=== PATIENT | female | born 1945 | race Caucasian/White ===

== ENCOUNTER 2020-07-27 15:33 | Inpatient (IN) | payer MEDICARE, MEDICAID ==
[~2020-07-27] VITALS: Ht 154.9 cm; Wt 65.3 kg
[2020-07-27 16:08] LABS: COVID AG,FIA SOURCE NASOPHARYNGEAL
[2020-07-27] MEDS ORDERED: MECL25TA39 PO (16:20)
[2020-07-27] MEDS ORDERED: DICL2100G TP (16:20)
[2020-07-27] MEDS ORDERED: INSU100V39 SQ (16:20)
[2020-07-27] MEDS ORDERED: LORA10TA7 PO (16:20)
[2020-07-27] MEDS ORDERED: [UNRECOGNIZED DRUG - CODE] OU (16:20)
[2020-07-27] MEDS ORDERED: FAMO20 PO (16:20)
[2020-07-27] MEDS ORDERED: FERR-89 PO (16:20)
[2020-07-27] MEDS ORDERED: MELA3TAB89 PO (16:20)
[2020-07-27] MEDS ORDERED: OCTR100A SQ (16:20)
[2020-07-27] MEDS ORDERED: MIRT-89 PO (16:20)
[2020-07-27] MEDS ORDERED: [UNRECOGNIZED DRUG - OTHER] IV (16:20)
[2020-07-27] MEDS ORDERED: FENT1PAT26 TP (16:20)
[2020-07-27] MEDS ORDERED: LISI-661 PO (16:20)
[2020-07-27] MEDS ORDERED: ASPI-1111 PO (16:20)
[2020-07-27] MEDS ORDERED: TRAM50TA4 PO (16:20)
[2020-07-27] MEDS ORDERED: QUET25TA PO (16:20)
[2020-07-27] MEDS ORDERED: 0.9% SODIUM CHLORIDE 10 ML SYRINGE IVP PRN (16:30)
[2020-07-27] MEDS ORDERED: ONDANSETRON HCL 4 MG/2 ML VIAL IVP PRN (16:30)
[2020-07-27] MEDS ORDERED: SODIUM CL IRRIG SOLN BAG 3,000 ML IRRIG ONE (16:42)
[2020-07-27 16:47] LABS: BASOPHILS % (AUTO) 0.4 % (0.0-2.0); EOSINOPHILS % (AUTO) 1.3 % (1.0-6.0); HEMATOCRIT 34.5 % (36-46); LYMPHOCYTES # (AUTO) 3.9 K/uL (1.0-4.8); LYMPHOCYTES % (AUTO) 35.2 % (22.0-44.0); MEAN CORPUSCULAR HEMOGLOBIN 29.1 pg (26.0-34.0); MEAN CORPUSCULAR HGB CONC 31.8 G/dL (31.0-37.0); MEAN CORPUSCULAR VOLUME 92 fL (80-100); MONOCYTES # (AUTO) 0.9 K/uL (0.1-1.0); MONOCYTES % (AUTO) 8.6 % (2.0-9.0); NEUTROPHILS % (AUTO) 54.5 % (40.0-70.0); PLATELET COUNT (AUTO) 342 K/uL (150-450); RED BLOOD CELL COUNT(AUTO) 3.76 MIL/uL (4.00-5.20); RED CELL DISTRIBUTION WIDTH 15.4 % (11.5-14.5)
[2020-07-27] MEDS ORDERED: SODIUM CHLORIDE 0.9% 500 ML IV ONE (16:54)
[2020-07-27 17:00] LABS: CALCIUM, TOTAL 10.1 mg/dL (8.8-10.5); CREATININE 1.1 mg/dL (0.60-1.30); POTASSIUM 4.1 mmol/L (3.5-5.1)
[2020-07-27 17:03] LABS: INR 1.1 (0.9-1.1); PROTHROMBIN TIME 11.1 SEC (9.4-11.6)
[2020-07-27 17:07] LABS: ALBUMIN 2.4 g/dL (3.4-5.0); BILIRUBIN,TOTAL 0.6 mg/dL (0.1-1.0); MAGNESIUM 1.6 mg/dL (1.80-2.40); TOTAL PROTEIN, SERUM 9.1 g/dL (6.4-8.2)
[2020-07-27 17:09] LABS: LACTIC ACID 1.8 mmol/L (0.4-2.0)
[2020-07-27] MEDS ORDERED: SODIUM CHLORIDE 0.9% 1,000 ML ONE ×2 (17:13→20:19)
[2020-07-27 18:41] LABS: ABG A-A DIFF O2 386.7 mmHg (10-20.0); ABG BASE EXCESS -3.9 mmol/L (-2.0-3.0); ABG CARBOXYHEMOGLOBIN 0.3 % (0.0-1.5); ABG HCO3 21.7 mmol/L (22.0-26.0); ABG METHEMOGLOBIN 0.3 % (0.0-1.5); ABG OXYGEN CONTENT 14.5 mL/dL (15.0-23.0); ABG OXYGEN SATURATION 99.5 % (95.0-98.0); ABG OXYHEMOGLOBIN 98.9 % (94.0-100.0); ABG PCO2 34 mmHg (35-45); ABG TOTAL HEMOGLOBIN 9.9 G/dL (12.0-18.0); PO2, ARTERIAL BG 293.7 mmHg (75.0-83.0); SOURCE, BLOOD GAS ARTERIAL
[2020-07-27 18:42] LABS: O2 DEVICE,BLOOD GAS VENTILATOR (ROOM AIR); PEEP,BG 5 cm H2O; SITE, BLOOD GAS ARTERIAL LINE; VT, ABG 450 ml
[2020-07-27] MEDS ORDERED: MetroNIDAZOLE 500 MG/NACL 100 ML IV ONE (18:47)
[2020-07-27] MEDS ORDERED: SUGAMMADEX SODIUM 200 MG/2 ML VIAL IVP ONE (20:19)
[2020-07-27] MEDS ORDERED: HYDROmorphone 2 MG/ML SYRINGE IVP PRN (21:45)
[2020-07-27] MEDS ORDERED: FentaNYL CITRATE PF 100 MCG/2 ML VIAL IVP PRN (21:45)
[2020-07-27] MEDS ORDERED: MEPERIDINE-PF 25 MG/ML VIAL IVP PRN (21:45)
[2020-07-27] MEDS ORDERED: MORPHINE SULFATE 2 MG/ML SYRINGE IVP PRN (22:00)
[2020-07-27] MEDS ORDERED: ACETAMINOPHEN 325 MG RECTAL SUPPOSITORY PR PRN (22:00)
[2020-07-27 22:01] LABS: BASOPHILS % (AUTO) 0.6 % (0.0-2.0); EOSINOPHILS % (AUTO) 0.6 % (1.0-6.0); HEMATOCRIT 31.3 % (36-46); HEMOGLOBIN 9.8 g/dL (12.0-16.0); LYMPHOCYTES # (AUTO) 3.4 K/uL (1.0-4.8); LYMPHOCYTES % (AUTO) 28.7 % (22.0-44.0); MEAN CORPUSCULAR HEMOGLOBIN 29.1 pg (26.0-34.0); MEAN CORPUSCULAR HGB CONC 31.4 G/dL (31.0-37.0); MEAN CORPUSCULAR VOLUME 93 fL (80-100); MONOCYTES # (AUTO) 0.4 K/uL (0.1-1.0); MONOCYTES % (AUTO) 3.2 % (2.0-9.0); NEUTROPHILS # (AUTO) 8.1 K/uL (1.8-7.7); NEUTROPHILS % (AUTO) 66.9 % (40.0-70.0); PLATELET COUNT (AUTO) 303 K/uL (150-450); RED BLOOD CELL COUNT(AUTO) 3.38 MIL/uL (4.00-5.20); RED CELL DISTRIBUTION WIDTH 15.6 % (11.5-14.5)
[2020-07-27 22:12] LABS: INR 1.2 (0.9-1.1); PROTHROMBIN TIME 12.4 SEC (9.4-11.6)
[2020-07-27 22:20] LABS: CALCIUM, TOTAL 9.3 mg/dL (8.8-10.5); CREATININE 1.12 mg/dL (0.60-1.30); POTASSIUM 4.1 mmol/L (3.5-5.1)
[2020-07-27 22:25] LABS: BILIRUBIN,TOTAL 0.9 mg/dL (0.1-1.0); MAGNESIUM 1.4 mg/dL (1.80-2.40); PHOSPHORUS 3.9 mg/dL (2.5-4.9)
[2020-07-27] MEDS ORDERED: INSULIN LISPRO 100 UNITS/ML SQ PRN (22:30)
[2020-07-27] MEDS ORDERED: DEXTROSE 50%-WATER 25 GM/50 ML SYRINGE IVP PRN ×2 (22:30→23:45)
[2020-07-27] MEDS ORDERED: MAGNESIUM SULFATE 4 GM/WATER 100 ML IV ONE (22:30)
[2020-07-27 22:39] LABS: GLUCOMETER DEV NAME(LOC) SDS.; GLUCOSE,POINT OF CARE 216 MG/DL (70-110)
[2020-07-27] MEDS: INSULIN LISPRO 100 UNITS/ML SQ PRN (23:54)
[2020-07-27 23:57] VITALS: BP 84/38
[2020-07-28] VITALS (10 sets, daily range): BP systolic 63–143; BP diastolic 40–88
[2020-07-28] MEDS ORDERED: MORPHINE SULFATE 2 MG/ML SYRINGE IVP PRN
[2020-07-28] MEDS ORDERED: INSULIN REGULAR, HUMAN 100 UNITS/ML SQ ONE
[2020-07-28] MEDS ORDERED: ALBUMIN HUMAN 25%-12.5GM/50ML 50 ML IV ONE
[2020-07-28] MEDS: SODIUM CHLORIDE 0.9% 1,000 ML IV SCH ×3 (00:02→18:08)
[2020-07-28] MEDS: PIPERACILLIN/TAZO 3.375 GM/D5W 50 ML IV SCH ×2 (00:11→07:47)
[2020-07-28] MEDS ORDERED: ACETAMINOPHEN 325 MG RECTAL SUPPOSITORY PR PRN (00:15)
[2020-07-28] MEDS: PHYTONADIONE 1 MG in SODIUM CHLORIDE 0.9% 50 ML IV SCH ×2 (00:18→22:26)
[2020-07-28 03:56] LABS: GLUCOMETER DEV NAME(LOC) 5N.1B; GLUCOSE,POINT OF CARE 209 MG/DL (70-110)
[2020-07-28] MEDS ORDERED: PNEUMOCOCCAL VACCINE POLYVALENT 0.5 ML VIAL [PPSV23] IM ONE (05:30)
[2020-07-28] MEDS ORDERED: ACETAMINOPHEN 1000 MG/ISO-OSM 100 ML IV ONE (05:45)
[2020-07-28] MEDS ORDERED: 0.9% SODIUM CHLORIDE 10 ML VIAL IVP ONE (06:33)
[2020-07-28] MEDS ORDERED: EPHEDrine SULFATE 50 MG/ML VIAL IM ONE (06:33)
[2020-07-28] MEDS ORDERED: DEXAMETHASONE SOD PHOS 4 MG/ML VIAL IVP ONE (06:33)
[2020-07-28] MEDS ORDERED: PHENYLEPHRINE HCL 10 MG/ML VIAL IVP ONE (06:33)
[2020-07-28] MEDS ORDERED: ONDANSETRON HCL 4 MG/2 ML VIAL IVP ONE (06:33)
[2020-07-28] MEDS ORDERED: LIDOCAINE/PF 2% 5 ML VIAL IM ONE (06:33)
[2020-07-28] MEDS ORDERED: CALCIUM CHLORIDE 100 MG/ML 10 ML SYRINGE IVP ONE (06:33)
[2020-07-28] MEDS ORDERED: ROCURONIUM BROMIDE 10 MG/ML 5 ML VIAL IVP ONE (06:33)
[2020-07-28] MEDS ORDERED: PROPOFOL 1% 20 ML VIAL IVP ONE (06:33)
[2020-07-28 06:40] LABS: HEMATOCRIT 32.2 % (36-46); MEAN CORPUSCULAR HEMOGLOBIN 29.6 pg (26.0-34.0); MEAN CORPUSCULAR VOLUME 96 fL (80-100); PLATELET COUNT (AUTO) 320 K/uL (150-450); RED BLOOD CELL COUNT(AUTO) 3.37 MIL/uL (4.00-5.20); RED CELL DISTRIBUTION WIDTH 15.8 % (11.5-14.5)
[2020-07-28 07:24] LABS: ALBUMIN 2.3 g/dL (3.4-5.0); BILIRUBIN,TOTAL 1.1 mg/dL (0.1-1.0); CREATININE 1.4 mg/dL (0.60-1.30); MAGNESIUM 2.6 mg/dL (1.80-2.40); PHOSPHORUS 4.8 mg/dL (2.5-4.9); POTASSIUM 4.5 mmol/L (3.5-5.1); TOTAL PROTEIN, SERUM 7.5 g/dL (6.4-8.2)
[2020-07-28 07:43] LABS: GLUCOMETER DEV NAME(LOC) 5S.2B; GLUCOSE,POINT OF CARE 196 MG/DL (70-110)
[2020-07-28 07:44] LABS: BAND NEUTROPHILS % (MANUAL) 12 % (0-5); LYMPHOCYTES % (MANUAL) 11 % (22-44); MONOCYTES % (MANUAL) 1 % (2-9); SEGMENTED NEUTROPHILS % 76 % (40-70)
[2020-07-28] MEDS ORDERED: SODIUM CHLORIDE 0.9% 1,000 ML IV ONE (09:00)
[2020-07-28] MEDS: FAMOTIDINE 10 MG/ML 2 ML VIAL IVP SCH ×2 (09:13→20:12)
[2020-07-28] MEDS: OXYGEN THERAPY IH SCH ×2 (09:15→20:06)
[2020-07-28 10:08] LABS: LACTIC ACID 7.4 mmol/L (0.4-2.0)
[2020-07-28] MEDS ORDERED: DOPamine HCL 800 MG/D5%-WATER 250 ML IV PRN (10:30)
[2020-07-28] MEDS ORDERED: PIPERACILLIN SODIUM/TAZOBACTAM 2.25 GM in DEXTROSE 5%-WATER 50 ML IV SCH (11:00)
[2020-07-28] MEDS ORDERED: DOPamine HCL 400 MG/D5%-WATER 250 ML IV PRN ×2 (11:15→12:00)
[2020-07-28] MEDS ORDERED: DOPamine HCL 400 MG/D5%-WATER 250 ML IV SCH (11:15)
[2020-07-28 11:28] LABS: APPEARANCE,URINE TURBID (CLEAR); BILIRUBIN,URINE NEGATIVE (NEGATIVE); GLUCOSE, URINE (UA) NEGATIVE (NEGATIVE); KETONES,URINE NEGATIVE (NEGATIVE); LEUKOCYTE ESTERASE ,URINE LARGE (NEGATIVE); NITRATE,URINE NEGATIVE (NEGATIVE); OCCULT BLOOD,URINE LARGE (NEGATIVE); PH,URINE 6.5 (5.0-8.0); PROTEIN,URINE POS 1+ (NEGATIVE); UROBILINOGEN,URINE 0.2 mg/dL (<=1.0)
[2020-07-28] MEDS: NOREPINEPHRINE 4 MG/D5%-WATER 250 ML IV PRN ×3 (11:45→19:41)
[2020-07-28] MEDS ORDERED: PHENYLEPHRINE 200 MG/D5%-WATER 250 ML IV PRN (12:00)
[2020-07-28 12:07] LABS: BACTERIA,URINE Few /HPF (None Seen)
[2020-07-28 12:08] LABS: SQUAMOUS EPITHELIAL CELL,UR Few /LPF (None Seen); URIC ACID CRYSTALS,URINE Few /LPF (None Seen)
[2020-07-28] MEDS ORDERED: *CLINICAL-MEROPENEM DOSING CLINICAL ONE (12:45)
[2020-07-28] MEDS ORDERED: HYDROCORTISONE SOD SUCC 100 MG/2 ML VIAL IVP ONE (13:15)
[2020-07-28] MEDS: INSULIN LISPRO 100 UNITS/ML SQ PRN ×3 (13:52→21:46)
[2020-07-28] MEDS ORDERED: CASPOFUNGIN ACETATE 70 MG in SODIUM CHLORIDE 0.9% 250 ML IV ONE (14:00)
[2020-07-28] MEDS: MEROPENEM 1 GM in SODIUM CHLORIDE 0.9% 100 ML IV SCH (14:09)
[2020-07-28] MEDS: HYDROmorphone 2 MG/ML SYRINGE IVP PRN ×2 (14:17→18:41)
[2020-07-28 15:38] LABS: INR 1.1 (0.9-1.1); PROTHROMBIN TIME 11.9 SEC (9.4-11.6)
[2020-07-28 15:43] LABS: HEMATOCRIT 29.3 % (36-46); MEAN CORPUSCULAR HEMOGLOBIN 29.4 pg (26.0-34.0); MEAN CORPUSCULAR HGB CONC 30.8 G/dL (31.0-37.0); MEAN CORPUSCULAR VOLUME 96 fL (80-100); PLATELET COUNT (AUTO) 399 K/uL (150-450); RED BLOOD CELL COUNT(AUTO) 3.07 MIL/uL (4.00-5.20); RED CELL DISTRIBUTION WIDTH 16.4 % (11.5-14.5)
[2020-07-28 15:54] LABS: ALBUMIN 2.1 g/dL (3.4-5.0); BILIRUBIN,TOTAL 1.1 mg/dL (0.1-1.0); CALCIUM, TOTAL 8.9 mg/dL (8.8-10.5); CREATININE 1.65 mg/dL (0.60-1.30); MAGNESIUM 2.2 mg/dL (1.80-2.40); PHOSPHORUS 4.8 mg/dL (2.5-4.9); TOTAL PROTEIN, SERUM 7.1 g/dL (6.4-8.2)
[2020-07-28] MEDS ORDERED: *CLINICAL-LEVOFLOXACIN IVPB DOSING CLINICAL ONE (16:00)
[2020-07-28] MEDS ORDERED: LEVOFLOXACIN 750 MG/D5% WATER 150 ML IV SCH (16:00)
[2020-07-28 16:47] LABS: BAND NEUTROPHILS % (MANUAL) 7 % (0-5); BASOPHILS % (MANUAL) 1 % (0-2); LYMPHOCYTES % (MANUAL) 4 % (22-44); MONOCYTES % (MANUAL) 6 % (2-9); SEGMENTED NEUTROPHILS % 82 % (40-70)
[2020-07-28] MEDS ORDERED: DAPTOMYCIN 500 MG in SODIUM CHLORIDE 0.9% 50 ML IV SCH ×2 (17:00→18:00)
[2020-07-28] MEDS: ALBUMIN HUMAN 25%-12.5GM/50ML 50 ML IV SCH (18:43)
[2020-07-28 18:58] LABS: GLUCOSE,POINT OF CARE 277 MG/DL (70-110)
[2020-07-28 20:57] LABS: GLUCOSE,POINT OF CARE 243 MG/DL (70-110)
[2020-07-28 21:25] LABS: GLUCOSE,POINT OF CARE 333 MG/DL (70-110)
[2020-07-29] VITALS: BP 132/71
[2020-07-29] MEDS: ALBUMIN HUMAN 25%-12.5GM/50ML 50 ML IV SCH ×2 (00:24→06:59)
[2020-07-29 01:00] VITALS: BP 135/64
[2020-07-29] MEDS: MEROPENEM 1 GM in SODIUM CHLORIDE 0.9% 100 ML IV SCH ×2 (01:05→13:49)
[2020-07-29] MEDS: HYDROmorphone 2 MG/ML SYRINGE IVP PRN ×5 (01:06→22:30)
[2020-07-29] MEDS: SODIUM CHLORIDE 0.9% 1,000 ML IV SCH ×3 (01:26→17:31)
[2020-07-29] MEDS: NOREPINEPHRINE 4 MG/D5%-WATER 250 ML IV PRN ×2 (02:16→11:17)
[2020-07-29 04:00] VITALS: BP 149/64
[2020-07-29] MEDS ORDERED: MORPHINE SULFATE/PF 0.5 MG/ML 10 ML AMP IVP ONE (05:01)
[2020-07-29] MEDS ORDERED: MORPHINE SULFATE 4 MG/ML SYRINGE IVP ONE (05:01)
[2020-07-29] MEDS ORDERED: FentaNYL CITRATE PF 100 MCG/2 ML VIAL IVP ONE (05:01)
[2020-07-29 05:12] LABS: HEMOGLOBIN 8.3 g/dL (12.0-16.0); MEAN CORPUSCULAR HEMOGLOBIN 29.7 pg (26.0-34.0); MEAN CORPUSCULAR HGB CONC 31.8 G/dL (31.0-37.0); MEAN CORPUSCULAR VOLUME 93 fL (80-100); PLATELET COUNT (AUTO) 304 K/uL (150-450); RED BLOOD CELL COUNT(AUTO) 2.79 MIL/uL (4.00-5.20)
[2020-07-29 05:31] LABS: CALCIUM, TOTAL 8.8 mg/dL (8.8-10.5); CREATININE 1.11 mg/dL (0.60-1.30); MAGNESIUM 1.3 mg/dL (1.80-2.40); PHOSPHORUS 2.2 mg/dL (2.5-4.9); POTASSIUM 3.2 mmol/L (3.5-5.1)
[2020-07-29 05:42] LABS: BAND NEUTROPHILS % (MANUAL) 7 % (0-5); LYMPHOCYTES % (MANUAL) 9 % (22-44); MONOCYTES % (MANUAL) 8 % (2-9); SEGMENTED NEUTROPHILS % 76 % (40-70)
[2020-07-29] MEDS: INSULIN LISPRO 100 UNITS/ML SQ PRN ×3 (07:02→17:30)
[2020-07-29 07:06] LABS: GLUCOSE,POINT OF CARE 242 MG/DL (70-110)
[2020-07-29 08:00] VITALS: BP 126/59
[2020-07-29] MEDS: OXYGEN THERAPY IH SCH ×2 (08:42→22:36)
[2020-07-29] MEDS: FAMOTIDINE 10 MG/ML 2 ML VIAL IVP SCH ×2 (08:43→22:35)
[2020-07-29] MEDS ORDERED: MAGNESIUM SULFATE 4 GM/WATER 100 ML IV ONE (10:45)
[2020-07-29] MEDS ORDERED: POTASSIUM PHOS,M-BASIC-D-BASIC 30 MEQ in DEXTROSE 5%-WATER 150 ML IV ONE (10:45)
[2020-07-29 12:00] VITALS: BP 121/59
[2020-07-29] MEDS ORDERED: MAGNESIUM SULFATE 4 GM/WATER 100 ML IV PRN (13:30)
[2020-07-29] MEDS ORDERED: POTASSIUM CHLORIDE 20 MEQ ER TABLET PO PRN (13:30)
[2020-07-29] MEDS ORDERED: SODIUM PHOS,M-BASIC-D-BASIC 30 MMOL in DEXTROSE 5%-WATER 250 ML IV ONE (14:15)
[2020-07-29 14:36] LABS: GLUCOSE,POINT OF CARE 203 MG/DL (70-110)
[2020-07-29] MEDS: CASPOFUNGIN ACETATE 50 MG in SODIUM CHLORIDE 0.9% 250 ML IV SCH (15:17)
[2020-07-29] MEDS: POTASSIUM CHL 10 MEQ/WATER 50 ML IV SCH ×2 (15:19→17:10)
[2020-07-29 16:00] VITALS: BP 119/60
[2020-07-29 17:06] LABS: BASOPHILS % (AUTO) 0.1 % (0.0-2.0); EOSINOPHILS % (AUTO) 0.1 % (1.0-6.0); HEMATOCRIT 24.9 % (36-46); LYMPHOCYTES # (AUTO) 2.5 K/uL (1.0-4.8); LYMPHOCYTES % (AUTO) 12.2 % (22.0-44.0); MEAN CORPUSCULAR HEMOGLOBIN 29.7 pg (26.0-34.0); MEAN CORPUSCULAR HGB CONC 32.3 G/dL (31.0-37.0); MEAN CORPUSCULAR VOLUME 92 fL (80-100); MONOCYTES # (AUTO) 1.3 K/uL (0.1-1.0); MONOCYTES % (AUTO) 6.2 % (2.0-9.0); NEUTROPHILS # (AUTO) 16.4 K/uL (1.8-7.7); NEUTROPHILS % (AUTO) 81.4 % (40.0-70.0); PLATELET COUNT (AUTO) 303 K/uL (150-450); RED BLOOD CELL COUNT(AUTO) 2.71 MIL/uL (4.00-5.20); RED CELL DISTRIBUTION WIDTH 15.7 % (11.5-14.5)
[2020-07-29] MEDS: DAPTOMYCIN 500 MG in SODIUM CHLORIDE 0.9% 50 ML IV SCH (17:29)
[2020-07-29 17:37] LABS: ALBUMIN 2.2 g/dL (3.4-5.0); ANION GAP 9 mmol/L (8-16); CALCIUM, TOTAL 8.2 mg/dL (8.8-10.5); CARBON DIOXIDE 24 mmol/L (22-29); CHLORIDE 109 mmol/L (98-107); CREATININE 0.88 mg/dL (0.60-1.30); GLUCOSE,RANDOM 221 mg/dL (70-110); PHOSPHORUS 2.7 mg/dL (2.5-4.9); SODIUM SERUM 142 mmol/L (136-145); UREA NITROGEN, BLOOD 20 mg/dL (7-18)
[2020-07-29 17:46] LABS: GLOMERULAR FILTR. RATE CALC > 60 mL/min (>60); POTASSIUM 2.8 mmol/L (3.5-5.1)
[2020-07-29 17:51] LABS: GLUCOSE,POINT OF CARE 208 MG/DL (70-110)
[2020-07-29] MEDS: POTASSIUM CHL 10 MEQ/WATER 50 ML IV PRN ×2 (18:32→19:50)
[2020-07-29] MEDS: PHYTONADIONE 1 MG in SODIUM CHLORIDE 0.9% 50 ML IV SCH (23:07)
[2020-07-29 23:31] LABS: GLUCOSE,POINT OF CARE 196 MG/DL (70-110)
[2020-07-30] VITALS (14 sets, daily range): BP systolic 91–131; BP diastolic 45–100
[2020-07-30] MEDS: MEROPENEM 1 GM in SODIUM CHLORIDE 0.9% 100 ML IV SCH ×3 (00:46→22:16)
[2020-07-30] MEDS: HYDROmorphone 2 MG/ML SYRINGE IVP PRN ×5 (02:53→23:09)
[2020-07-30] MEDS: SODIUM CHLORIDE 0.9% 1,000 ML IV SCH ×2 (03:16→13:56)
[2020-07-30] MEDS: ALBUMIN HUMAN 25%-12.5GM/50ML 50 ML IV SCH ×2 (04:59→17:20)
[2020-07-30] MEDS: OXYGEN THERAPY IH SCH ×2 (04:59→21:18)
[2020-07-30] MEDS: INSULIN LISPRO 100 UNITS/ML SQ PRN ×2 (05:54→12:11)
[2020-07-30 05:57] LABS: HEMATOCRIT 23.2 % (36-46); HEMOGLOBIN 7.6 g/dL (12.0-16.0); MEAN CORPUSCULAR HEMOGLOBIN 30.1 pg (26.0-34.0); MEAN CORPUSCULAR HGB CONC 32.8 G/dL (31.0-37.0); MEAN CORPUSCULAR VOLUME 92 fL (80-100); PLATELET COUNT (AUTO) 259 K/uL (150-450); RED BLOOD CELL COUNT(AUTO) 2.52 MIL/uL (4.00-5.20); RED CELL DISTRIBUTION WIDTH 15.4 % (11.5-14.5)
[2020-07-30 06:27] LABS: ALANINE AMINOTRANSFERASE 17 U/L (12-78); ALKALINE PHOSPHATASE 133 U/L (46-116); ANION GAP 9 mmol/L (8-16); ASPARTATE AMINOTRANSFERASE 20 U/L (15-37); BILIRUBIN,TOTAL 0.6 mg/dL (0.1-1.0); C-REACTIVE PROTEIN QUANT 12.75 mg/dL (0.00-0.30); CARBON DIOXIDE 24 mmol/L (22-29); CHLORIDE 110 mmol/L (98-107); CREATININE 0.74 mg/dL (0.60-1.30); GLUCOSE,RANDOM 226 mg/dL (70-110); PHOSPHORUS 2.5 mg/dL (2.5-4.9); SODIUM SERUM 143 mmol/L (136-145); TOTAL PROTEIN, SERUM 6.4 g/dL (6.4-8.2); TRIGLYCERIDES 150 mg/dL (15-150); UREA NITROGEN, BLOOD 15 mg/dL (7-18)
[2020-07-30 07:01] LABS: GLOMERULAR FILTR. RATE CALC > 60 mL/min (>60); POTASSIUM 2.8 mmol/L (3.5-5.1)
[2020-07-30] MEDS: POTASSIUM CHL 10 MEQ/WATER 50 ML IV PRN ×4 (07:05→10:04)
[2020-07-30] MEDS ORDERED: SODIUM CHLORIDE 0.9% 250 ML IV ONE ×2 (08:25→10:50)
[2020-07-30] MEDS ORDERED: POTASSIUM CHL 10 MEQ/WATER 50 ML IV SCH (09:15)
[2020-07-30] MEDS ORDERED: MAGNESIUM SULFATE 4 GM/WATER 100 ML IV ONE (09:15)
[2020-07-30] MEDS: FAMOTIDINE 10 MG/ML 2 ML VIAL IVP SCH ×2 (09:21→21:18)
[2020-07-30] MEDS ORDERED: HYDROmorphone 2 MG/ML SYRINGE IVP PRN ×2 (09:30→12:00)
[2020-07-30 09:37] LABS: BAND NEUTROPHILS % (MANUAL) 2 % (0-5); LYMPHOCYTES % (MANUAL) 12 % (22-44); MONOCYTES % (MANUAL) 3 % (2-9); SEGMENTED NEUTROPHILS % 83 % (40-70)
[2020-07-30] MEDS ORDERED: SODIUM PHOS,M-BASIC-D-BASIC 30 MEQ in DEXTROSE 5%-WATER 150 ML IV ONE (09:45)
[2020-07-30 11:04] LABS: GLUCOSE,POINT OF CARE 211 MG/DL (70-110)
[2020-07-30] MEDS: CASPOFUNGIN ACETATE 50 MG in SODIUM CHLORIDE 0.9% 250 ML IV SCH (13:59)
[2020-07-30 14:49] LABS: GLUCOSE,POINT OF CARE 189 MG/DL (70-110)
[2020-07-30 16:16] LABS: BASOPHILS % (AUTO) 0.6 % (0.0-2.0); EOSINOPHILS % (AUTO) 0.8 % (1.0-6.0); HEMATOCRIT 25.6 % (36-46); HEMOGLOBIN 8.4 g/dL (12.0-16.0); LYMPHOCYTES # (AUTO) 2.3 K/uL (1.0-4.8); LYMPHOCYTES % (AUTO) 19.5 % (22.0-44.0); MEAN CORPUSCULAR HEMOGLOBIN 30.2 pg (26.0-34.0); MEAN CORPUSCULAR HGB CONC 32.8 G/dL (31.0-37.0); MEAN CORPUSCULAR VOLUME 92 fL (80-100); MONOCYTES # (AUTO) 0.7 K/uL (0.1-1.0); MONOCYTES % (AUTO) 6.2 % (2.0-9.0); NEUTROPHILS # (AUTO) 8.6 K/uL (1.8-7.7); NEUTROPHILS % (AUTO) 72.9 % (40.0-70.0); PLATELET COUNT (AUTO) 202 K/uL (150-450); RED BLOOD CELL COUNT(AUTO) 2.78 MIL/uL (4.00-5.20); RED CELL DISTRIBUTION WIDTH 15.1 % (11.5-14.5)
[2020-07-30 16:32] LABS: ANION GAP 8 mmol/L (8-16); CALCIUM, TOTAL 7.9 mg/dL (8.8-10.5); CARBON DIOXIDE 25 mmol/L (22-29); CHLORIDE 109 mmol/L (98-107); CREATININE 0.78 mg/dL (0.60-1.30); GLUCOSE,RANDOM 144 mg/dL (70-110); PHOSPHORUS 2.6 mg/dL (2.5-4.9); POTASSIUM 3.1 mmol/L (3.5-5.1); SODIUM SERUM 142 mmol/L (136-145); UREA NITROGEN, BLOOD 16 mg/dL (7-18)
[2020-07-30] MEDS: LEVOFLOXACIN 750 MG/D5% WATER 150 ML IV SCH (16:32)
[2020-07-30 16:35] LABS: GLOMERULAR FILTR. RATE CALC > 60 mL/min (>60)
[2020-07-30] MEDS ORDERED: POTASSIUM PHOS,M-BASIC-D-BASIC 30 MEQ in DEXTROSE 5%-WATER 150 ML IV ONE (17:30)
[2020-07-30] MEDS ORDERED: *CLINICAL-TOTAL PARENTERAL NUTRITION DOSING CLINICAL ONE (17:30)
[2020-07-30] MEDS ORDERED: DEXTROSE 50%-WATER 25 GM/50 ML SYRINGE IVP PRN (17:30)
[2020-07-30] MEDS: DAPTOMYCIN 500 MG in SODIUM CHLORIDE 0.9% 50 ML IV SCH (18:04)
[2020-07-30] MEDS ORDERED: [UNRECOGNIZED DRUG - REMARK] IV SCH ×4 (22:00)
[2020-07-31] MEDS: POTASSIUM CHL 10 MEQ/WATER 50 ML IV PRN ×5 (00:32→20:59)
[2020-07-31 00:33] VITALS: BP 101/56
[2020-07-31 03:24] LABS: GLUCOMETER DEV NAME(LOC) 5S.1; GLUCOSE,POINT OF CARE 153 MG/DL (70-110)
[2020-07-31] MEDS: HYDROmorphone 2 MG/ML SYRINGE IVP PRN ×3 (04:00→12:16)
[2020-07-31 04:45] VITALS: BP 101/51
[2020-07-31] MEDS: ALBUMIN HUMAN 25%-12.5GM/50ML 50 ML IV SCH ×3 (05:17→23:00)
[2020-07-31] MEDS: MEROPENEM 1 GM in SODIUM CHLORIDE 0.9% 100 ML IV SCH ×3 (05:17→23:00)
[2020-07-31] MEDS: INSULIN LISPRO 100 UNITS/ML SQ PRN ×3 (05:57→16:26)
[2020-07-31 06:15] LABS: BAND NEUTROPHILS % (MANUAL) 0 % (0-5)
[2020-07-31 06:37] LABS: HEMOGLOBIN 8.9 g/dL (12.0-16.0); MEAN CORPUSCULAR HEMOGLOBIN 31.2 pg (26.0-34.0); MEAN CORPUSCULAR HGB CONC 34.2 G/dL (31.0-37.0); MEAN CORPUSCULAR VOLUME 91 fL (80-100); PLATELET COUNT (AUTO) 197 K/uL (150-450); RED BLOOD CELL COUNT(AUTO) 2.84 MIL/uL (4.00-5.20); RED CELL DISTRIBUTION WIDTH 15.3 % (11.5-14.5)
[2020-07-31 06:51] LABS: GLUCOMETER DEV NAME(LOC) 5S.1; GLUCOSE,POINT OF CARE 175 MG/DL (70-110)
[2020-07-31 07:11] LABS: ANION GAP 9 mmol/L (8-16); C-REACTIVE PROTEIN QUANT 7.73 mg/dL (0.00-0.30); CALCIUM, TOTAL 8.3 mg/dL (8.8-10.5); CARBON DIOXIDE 24 mmol/L (22-29); CHLORIDE 107 mmol/L (98-107); CREATINE KINASE, TOTAL ONLY 38 U/L (26-192); CREATININE 0.69 mg/dL (0.60-1.30); GLUCOSE,RANDOM 174 mg/dL (70-110); PHOSPHORUS 2.4 mg/dL (2.5-4.9); POTASSIUM 3.5 mmol/L (3.5-5.1); SODIUM SERUM 140 mmol/L (136-145); UREA NITROGEN, BLOOD 13 mg/dL (7-18)
[2020-07-31 07:13] LABS: GLOMERULAR FILTR. RATE CALC > 60 mL/min (>60)
[2020-07-31] MEDS ORDERED: SODIUM PHOS,M-BASIC-D-BASIC 30 MMOL in DEXTROSE 5%-WATER 250 ML IV ONE ×2 (08:15→11:30)
[2020-07-31] MEDS ORDERED: MAGNESIUM SULFATE 3 GM in DEXTROSE 5%-WATER 100 ML IV ONE (08:15)
[2020-07-31 08:42] VITALS: BP 100/50
[2020-07-31] MEDS: FAMOTIDINE 10 MG/ML 2 ML VIAL IVP SCH ×2 (08:42→21:52)
[2020-07-31] MEDS: OXYGEN THERAPY IH SCH (08:46)
[2020-07-31] MEDS: THIAMINE 100 MG/ML 2 ML VIAL IVP SCH (09:37)
[2020-07-31] MEDS: INSULIN GLARGINE,HUM.REC.ANLOG 100 UNITS/ML SQ SCH (09:48)
[2020-07-31 11:25] VITALS: BP 103/52
[2020-07-31] MEDS ORDERED: MAGNESIUM SULFATE 4 GM/WATER 100 ML IV ONE (11:30)
[2020-07-31] MEDS ORDERED: MAGNESIUM SULFATE 1 GM in DEXTROSE 5%-WATER 50 ML IV ONE (12:00)
[2020-07-31] MEDS ORDERED: KETOROLAC TROMETHAMINE 15 MG/ML VIAL IVP SCH (12:00)
[2020-07-31 12:28] LABS: GLUCOMETER DEV NAME(LOC) 5S.1; GLUCOSE,POINT OF CARE 163 MG/DL (70-110)
[2020-07-31 12:28] LABS: GLUCOMETER DEV NAME(LOC) 5S.1; GLUCOSE,POINT OF CARE 111 MG/DL (70-110)
[2020-07-31 13:44] LABS: EOSINOPHILS % (MANUAL) 1 % (1-6); LYMPHOCYTES % (MANUAL) 23 % (22-44); MONOCYTES % (MANUAL) 4 % (2-9); SEGMENTED NEUTROPHILS % 72 % (40-70)
[2020-07-31] MEDS: CASPOFUNGIN ACETATE 50 MG in SODIUM CHLORIDE 0.9% 250 ML IV SCH (14:43)
[2020-07-31] MEDS ORDERED: METOCLOPRAMIDE HCL 5 MG/ML 2 ML VIAL IVP SCH (16:00)
[2020-07-31] MEDS: METOCLOPRAMIDE HCL 5 MG/ML 2 ML VIAL IVP SCH ×2 (16:12→23:05)
[2020-07-31] MEDS: LEVOFLOXACIN 750 MG/D5% WATER 150 ML IV SCH (16:12)
[2020-07-31 16:30] VITALS: BP 100/57
[2020-07-31 16:42] LABS: GLUCOMETER DEV NAME(LOC) 5S.2B; GLUCOSE,POINT OF CARE 121 MG/DL (70-110)
[2020-07-31 16:46] LABS: ANION GAP 10 mmol/L (8-16); CALCIUM, TOTAL 8.8 mg/dL (8.8-10.5); CARBON DIOXIDE 24 mmol/L (22-29); CHLORIDE 104 mmol/L (98-107); CREATININE 0.76 mg/dL (0.60-1.30); GLUCOSE,RANDOM 145 mg/dL (70-110); SODIUM SERUM 138 mmol/L (136-145); UREA NITROGEN, BLOOD 13 mg/dL (7-18)
[2020-07-31 16:49] LABS: PHOSPHORUS 2.9 mg/dL (2.5-4.9)
[2020-07-31 16:54] LABS: GLOMERULAR FILTR. RATE CALC > 60 mL/min (>60); POTASSIUM 2.7 mmol/L (3.5-5.1)
[2020-07-31 21:30] VITALS: BP 95/48
[2020-07-31 21:30] LABS: APPEARANCE,URINE CLOUDY (CLEAR); BILIRUBIN,URINE NEGATIVE (NEGATIVE); GLUCOSE, URINE (UA) NEGATIVE (NEGATIVE); KETONES,URINE NEGATIVE (NEGATIVE); LEUKOCYTE ESTERASE ,URINE MODERATE (NEGATIVE); NITRATE,URINE NEGATIVE (NEGATIVE); OCCULT BLOOD,URINE MODERATE (NEGATIVE); PH,URINE 6.5 (5.0-8.0); PROTEIN,URINE POS 1+ (NEGATIVE); UROBILINOGEN,URINE 0.2 mg/dL (<=1.0)
[2020-07-31 21:38] LABS: BACTERIA,URINE Few /HPF (None Seen); SQUAMOUS EPITHELIAL CELL,UR Moderate /LPF (None Seen); WBC,URINE 26-50 /HPF (0-5)
[2020-07-31 21:39] LABS: AMORPHOUS SEDIMENT,UR Many /LPF (None Seen)
[2020-07-31] MEDS: KETOROLAC TROMETHAMINE 15 MG/ML VIAL IVP PRN (21:53)
[2020-07-31] MEDS: ENOXAPARIN SODIUM 30 MG/0.3 ML PF SYRINGE SQ SCH (21:53)
[2020-07-31] MEDS ORDERED: DEXTROSE 50%-WATER 25 GM/50 ML SYRINGE IVP PRN (22:00)
[2020-07-31] MEDS: INSULIN REGULAR, HUMAN 100 UNITS/ML SQ PRN (22:03)
[2020-07-31] MEDS: TPN SOLUTION 1 EA, SODIUM CHLORIDE 70 MEQ, SODIUM PHOS,M-BASIC-D-BASIC 30 MEQ, POTASSIU... IV SCH ×20 (22:27→23:01)
[2020-07-31 22:54] LABS: GLUCOMETER DEV NAME(LOC) 5S.1; GLUCOSE,POINT OF CARE 139 MG/DL (70-110)
[2020-07-31 22:55] LABS: GLUCOMETER DEV NAME(LOC) 5S.1; GLUCOSE,POINT OF CARE 172 MG/DL (70-110)
[2020-08-01 00:32] VITALS: BP 95/48
[2020-08-01] MEDS: POTASSIUM CHL 10 MEQ/WATER 50 ML IV PRN ×2 (01:14→02:13)
[2020-08-01] MEDS: KETOROLAC TROMETHAMINE 15 MG/ML VIAL IVP PRN ×3 (05:08→21:30)
[2020-08-01] MEDS: MEROPENEM 1 GM in SODIUM CHLORIDE 0.9% 100 ML IV SCH ×3 (05:14→22:26)
[2020-08-01] MEDS: ALBUMIN HUMAN 25%-12.5GM/50ML 50 ML IV SCH ×3 (05:15→22:26)
[2020-08-01] MEDS: METOCLOPRAMIDE HCL 5 MG/ML 2 ML VIAL IVP SCH ×4 (05:28→23:02)
[2020-08-01] MEDS: INSULIN REGULAR, HUMAN 100 UNITS/ML SQ PRN ×3 (05:36→17:31)
[2020-08-01 06:53] LABS: BAND NEUTROPHILS % (MANUAL) 0 % (0-5)
[2020-08-01 06:55] LABS: MEAN CORPUSCULAR HEMOGLOBIN 31.1 pg (26.0-34.0); MEAN CORPUSCULAR HGB CONC 34.5 G/dL (31.0-37.0); MEAN CORPUSCULAR VOLUME 90 fL (80-100); PLATELET COUNT (AUTO) 212 K/uL (150-450); RED BLOOD CELL COUNT(AUTO) 2.89 MIL/uL (4.00-5.20); RED CELL DISTRIBUTION WIDTH 15.1 % (11.5-14.5)
[2020-08-01 07:21] LABS: ANION GAP 6 mmol/L (8-16); C-REACTIVE PROTEIN QUANT 4.88 mg/dL (0.00-0.30); CARBON DIOXIDE 24 mmol/L (22-29); CHLORIDE 102 mmol/L (98-107); CREATININE 0.87 mg/dL (0.60-1.30); GLUCOSE,RANDOM 260 mg/dL (70-110); PHOSPHORUS 4.4 mg/dL (2.5-4.9); POTASSIUM 3.4 mmol/L (3.5-5.1); SODIUM SERUM 132 mmol/L (136-145); UREA NITROGEN, BLOOD 15 mg/dL (7-18)
[2020-08-01 07:26] LABS: GLOMERULAR FILTR. RATE CALC > 60 mL/min (>60)
[2020-08-01 07:35] VITALS: BP 102/51
[2020-08-01 07:48] LABS: GLUCOMETER DEV NAME(LOC) 5S.1; GLUCOSE,POINT OF CARE 242 MG/DL (70-110)
[2020-08-01 08:29] LABS: EOSINOPHILS % (MANUAL) 2 % (1-6); LYMPHOCYTES % (MANUAL) 22 % (22-44); MONOCYTES % (MANUAL) 5 % (2-9); SEGMENTED NEUTROPHILS % 71 % (40-70)
[2020-08-01] MEDS: INSULIN GLARGINE,HUM.REC.ANLOG 100 UNITS/ML SQ SCH (09:00)
[2020-08-01] MEDS ORDERED: INSULIN GLARGINE,HUM.REC.ANLOG 100 UNITS/ML SQ ONE (09:15)
[2020-08-01] MEDS ORDERED: MAGNESIUM SULFATE 2 GM/WATER 50 ML IV ONE (09:15)
[2020-08-01] MEDS: HYDROmorphone 2 MG/ML SYRINGE IVP PRN ×2 (09:22→23:00)
[2020-08-01] MEDS: THIAMINE 100 MG/ML 2 ML VIAL IVP SCH (09:29)
[2020-08-01] MEDS: FAMOTIDINE 10 MG/ML 2 ML VIAL IVP SCH ×2 (09:29→21:22)
[2020-08-01] MEDS: ENOXAPARIN SODIUM 30 MG/0.3 ML PF SYRINGE SQ SCH ×2 (09:30→21:22)
[2020-08-01] MEDS: POTASSIUM CHL 10 MEQ/WATER 50 ML IV SCH ×2 (09:31→11:14)
[2020-08-01 11:05] VITALS: BP 99/52
[2020-08-01 12:12] LABS: GLUCOMETER DEV NAME(LOC) 5N.1B; GLUCOSE,POINT OF CARE 201 MG/DL (70-110)
[2020-08-01] MEDS: OXYGEN THERAPY IH SCH ×3 (12:27→21:22)
[2020-08-01 15:45] VITALS: BP 97/50
[2020-08-01] MEDS: LEVOFLOXACIN 750 MG/D5% WATER 150 ML IV SCH (16:14)
[2020-08-01] MEDS: CASPOFUNGIN ACETATE 50 MG in SODIUM CHLORIDE 0.9% 250 ML IV SCH (16:51)
[2020-08-01 18:16] LABS: GLUCOMETER DEV NAME(LOC) 5N.1B; GLUCOSE,POINT OF CARE 172 MG/DL (70-110)
[2020-08-01 19:15] VITALS: BP 98/50
[2020-08-01] MEDS ORDERED: TPN IV SCH ×21 (22:00)
[2020-08-01] MEDS ORDERED: SODIUM PHOS M BASIC D BASIC IV SCH ×21 (22:00)
[2020-08-01] MEDS ORDERED: [UNRECOGNIZED DRUG - OTHER] IV SCH ×21 (22:00)
[2020-08-01] MEDS ORDERED: SODIUM CHLORIDE IV SCH ×21 (22:00)
[2020-08-01] MEDS ORDERED: SODIUM CHLORIDE 0.9% 250 ML IV ONE (22:35)
[2020-08-01 23:00] VITALS: BP 106/64
[2020-08-02] MEDS: INSULIN REGULAR, HUMAN 100 UNITS/ML SQ PRN ×5 (01:08→23:21)
[2020-08-02] MEDS: HYDROmorphone 2 MG/ML SYRINGE IVP PRN ×3 (02:38→21:09)
[2020-08-02 04:20] VITALS: BP 110/61
[2020-08-02] MEDS: METOCLOPRAMIDE HCL 5 MG/ML 2 ML VIAL IVP SCH ×4 (06:13→23:17)
[2020-08-02] MEDS: ALBUMIN HUMAN 25%-12.5GM/50ML 50 ML IV SCH ×3 (06:13→22:14)
[2020-08-02] MEDS: MEROPENEM 1 GM in SODIUM CHLORIDE 0.9% 100 ML IV SCH ×3 (06:13→22:14)
[2020-08-02 06:57] LABS: HEMATOCRIT 25.5 % (36-46); HEMOGLOBIN 8.6 g/dL (12.0-16.0); MEAN CORPUSCULAR HEMOGLOBIN 30.9 pg (26.0-34.0); MEAN CORPUSCULAR HGB CONC 33.7 G/dL (31.0-37.0); MEAN CORPUSCULAR VOLUME 92 fL (80-100); PLATELET COUNT (AUTO) 201 K/uL (150-450); RED BLOOD CELL COUNT(AUTO) 2.77 MIL/uL (4.00-5.20); RED CELL DISTRIBUTION WIDTH 15.2 % (11.5-14.5)
[2020-08-02] MEDS: FAMOTIDINE 10 MG/ML 2 ML VIAL IVP SCH ×2 (07:54→21:09)
[2020-08-02] MEDS: THIAMINE 100 MG/ML 2 ML VIAL IVP SCH (07:54)
[2020-08-02 07:59] LABS: ALANINE AMINOTRANSFERASE 13 U/L (12-78); ALBUMIN 2.4 g/dL (3.4-5.0); ALKALINE PHOSPHATASE 130 U/L (46-116); ANION GAP 6 mmol/L (8-16); ASPARTATE AMINOTRANSFERASE 18 U/L (15-37); BILIRUBIN,TOTAL 0.8 mg/dL (0.1-1.0); CALCIUM, TOTAL 9.4 mg/dL (8.8-10.5); CARBON DIOXIDE 24 mmol/L (22-29); CHLORIDE 105 mmol/L (98-107); CREATININE 0.86 mg/dL (0.60-1.30); GLUCOSE,RANDOM 205 mg/dL (70-110); PHOSPHORUS 2.3 mg/dL (2.5-4.9); POTASSIUM 3.4 mmol/L (3.5-5.1); SODIUM SERUM 135 mmol/L (136-145); TOTAL PROTEIN, SERUM 6.2 g/dL (6.4-8.2); UREA NITROGEN, BLOOD 19 mg/dL (7-18)
[2020-08-02 08:00] LABS: GLOMERULAR FILTR. RATE CALC > 60 mL/min (>60)
[2020-08-02] MEDS: INSULIN GLARGINE,HUM.REC.ANLOG 100 UNITS/ML SQ SCH (08:02)
[2020-08-02] MEDS: ENOXAPARIN SODIUM 30 MG/0.3 ML PF SYRINGE SQ SCH ×2 (08:03→21:09)
[2020-08-02] MEDS: KETOROLAC TROMETHAMINE 15 MG/ML VIAL IVP PRN ×2 (08:04→18:33)
[2020-08-02] MEDS: OXYGEN THERAPY IH SCH ×2 (08:05→21:09)
[2020-08-02 08:06] VITALS: BP 110/62
[2020-08-02 08:29] LABS: BAND NEUTROPHILS % (MANUAL) 2 % (0-5); LYMPHOCYTES % (MANUAL) 23 % (22-44); MONOCYTES % (MANUAL) 4 % (2-9); SEGMENTED NEUTROPHILS % 71 % (40-70)
[2020-08-02 08:55] LABS: GLUCOMETER DEV NAME(LOC) 5N.1B; GLUCOSE,POINT OF CARE 231 MG/DL (70-110)
[2020-08-02 08:55] LABS: GLUCOMETER DEV NAME(LOC) 5N.1B; GLUCOSE,POINT OF CARE 193 MG/DL (70-110)
[2020-08-02 11:14] VITALS: BP 112/55
[2020-08-02 13:18] LABS: GLUCOMETER DEV NAME(LOC) 5N.1B; GLUCOSE,POINT OF CARE 134 MG/DL (70-110)
[2020-08-02] MEDS: POTASSIUM CHL 10 MEQ/WATER 50 ML IV PRN (13:23)
[2020-08-02] MEDS ORDERED: MAGNESIUM SULFATE 2 GM/WATER 50 ML IV ONE (13:30)
[2020-08-02] MEDS ORDERED: SODIUM PHOS,M-BASIC-D-BASIC 30 MMOL in DEXTROSE 5%-WATER 250 ML IV ONE (14:45)
[2020-08-02] MEDS ORDERED: POTASSIUM PHOS,M-BASIC-D-BASIC 10 MEQ in DEXTROSE 5%-WATER 50 ML IV ONE (16:00)
[2020-08-02 16:18] VITALS: BP 116/69
[2020-08-02] MEDS: CASPOFUNGIN ACETATE 50 MG in SODIUM CHLORIDE 0.9% 250 ML IV SCH (16:55)
[2020-08-02] MEDS: LEVOFLOXACIN 750 MG/D5% WATER 150 ML IV SCH (17:45)
[2020-08-02 20:00] VITALS: BP 107/69
[2020-08-02] MEDS ORDERED: [UNRECOGNIZED DRUG - OTHER] IV SCH ×11 (22:00)
[2020-08-02] MEDS ORDERED: SODIUM PHOS M BASIC D BASIC IV SCH ×11 (22:00)
[2020-08-02] MEDS ORDERED: SODIUM CHLORIDE IV SCH ×11 (22:00)
[2020-08-02] MEDS ORDERED: TPN IV SCH ×11 (22:00)
[2020-08-03] VITALS (7 sets, daily range): BP systolic 108–132; BP diastolic 60–68
[2020-08-03] MEDS: KETOROLAC TROMETHAMINE 15 MG/ML VIAL IVP PRN (01:15)
[2020-08-03] MEDS: HYDROmorphone 2 MG/ML SYRINGE IVP PRN ×4 (03:15→22:13)
[2020-08-03] MEDS ORDERED: RINGERS SOLUTION,LACTATED 1,000 ML IV ONE (04:48)
[2020-08-03] MEDS: ALBUMIN HUMAN 25%-12.5GM/50ML 50 ML IV SCH ×3 (05:06→21:44)
[2020-08-03] MEDS: MEROPENEM 1 GM in SODIUM CHLORIDE 0.9% 100 ML IV SCH ×3 (05:07→21:44)
[2020-08-03] MEDS: METOCLOPRAMIDE HCL 5 MG/ML 2 ML VIAL IVP SCH ×2 (05:11→12:15)
[2020-08-03] MEDS ORDERED: SODIUM CL IRRIG SOLN BAG 3,000 ML IRRIG ONE ×2 (06:33→08:37)
[2020-08-03 07:01] LABS: GLUCOMETER DEV NAME(LOC) 5S.1; GLUCOSE,POINT OF CARE 177 MG/DL (70-110)
[2020-08-03 07:02] LABS: GLUCOMETER DEV NAME(LOC) 5S.1; GLUCOSE,POINT OF CARE 191 MG/DL (70-110)
[2020-08-03 07:02] LABS: GLUCOMETER DEV NAME(LOC) 5S.1; GLUCOSE,POINT OF CARE 273 MG/DL (70-110)
[2020-08-03 07:02] LABS: HEMOGLOBIN 8.7 g/dL (12.0-16.0); MEAN CORPUSCULAR HGB CONC 33.5 G/dL (31.0-37.0); MEAN CORPUSCULAR VOLUME 92 fL (80-100); PLATELET COUNT (AUTO) 231 K/uL (150-450); RED BLOOD CELL COUNT(AUTO) 2.81 MIL/uL (4.00-5.20); RED CELL DISTRIBUTION WIDTH 15.6 % (11.5-14.5)
[2020-08-03 07:02] LABS: GLUCOMETER DEV NAME(LOC) 5S.1; GLUCOSE,POINT OF CARE 276 MG/DL (70-110)
[2020-08-03 07:16] LABS: ANION GAP 11 mmol/L (8-16); C-REACTIVE PROTEIN QUANT 2.67 mg/dL (0.00-0.30); CALCIUM, TOTAL 9.6 mg/dL (8.8-10.5); CARBON DIOXIDE 26 mmol/L (22-29); CHLORIDE 104 mmol/L (98-107); CREATININE 0.74 mg/dL (0.60-1.30); GLUCOSE,RANDOM 191 mg/dL (70-110); PHOSPHORUS 3.6 mg/dL (2.5-4.9); POTASSIUM 3.7 mmol/L (3.5-5.1); SODIUM SERUM 141 mmol/L (136-145); UREA NITROGEN, BLOOD 17 mg/dL (7-18)
[2020-08-03 07:19] LABS: GLOMERULAR FILTR. RATE CALC > 60 mL/min (>60)
[2020-08-03] MEDS ORDERED: IOHEXOL 240 MG/ML 20 ML VIAL ONE (08:20)
[2020-08-03] MEDS ORDERED: MEPERIDINE-PF 25 MG/ML VIAL IVP PRN (08:30)
[2020-08-03] MEDS ORDERED: HYDROmorphone 2 MG/ML SYRINGE IVP PRN (08:30)
[2020-08-03] MEDS ORDERED: FentaNYL CITRATE PF 100 MCG/2 ML VIAL IVP PRN (08:30)
[2020-08-03] MEDS ORDERED: SUGAMMADEX SODIUM 200 MG/2 ML VIAL IVP ONE (08:31)
[2020-08-03] MEDS ORDERED: MAGNESIUM SULFATE 2 GM/WATER 50 ML IV ONE (09:00)
[2020-08-03] MEDS ORDERED: HYDROmorphone 2 MG/ML SYRINGE ONE (09:03)
[2020-08-03 09:41] LABS: BAND NEUTROPHILS % (MANUAL) 2 % (0-5); LYMPHOCYTES % (MANUAL) 24 % (22-44); MONOCYTES % (MANUAL) 3 % (2-9); SEGMENTED NEUTROPHILS % 71 % (40-70)
[2020-08-03] MEDS: ENOXAPARIN SODIUM 30 MG/0.3 ML PF SYRINGE SQ SCH ×2 (09:56→20:19)
[2020-08-03] MEDS: THIAMINE 100 MG/ML 2 ML VIAL IVP SCH (09:56)
[2020-08-03] MEDS: FAMOTIDINE 10 MG/ML 2 ML VIAL IVP SCH ×2 (09:56→20:19)
[2020-08-03] MEDS: OXYGEN THERAPY IH SCH ×2 (09:57→20:20)
[2020-08-03] MEDS ORDERED: SODIUM CHLORIDE 0.9% 250 ML IV ONE (10:11)
[2020-08-03] MEDS ORDERED: PROPOFOL 1% 20 ML VIAL IVP ONE (12:00)
[2020-08-03] MEDS ORDERED: FentaNYL CITRATE PF 100 MCG/2 ML VIAL IVP ONE (12:00)
[2020-08-03] MEDS ORDERED: LIDOCAINE/PF 2% 5 ML VIAL IM ONE (12:00)
[2020-08-03] MEDS ORDERED: ONDANSETRON HCL 4 MG/2 ML VIAL IVP ONE (12:00)
[2020-08-03] MEDS ORDERED: DEXAMETHASONE SOD PHOS 4 MG/ML VIAL IVP ONE (12:00)
[2020-08-03] MEDS ORDERED: PHENYLEPHRINE HCL 10 MG/ML VIAL IVP ONE (12:00)
[2020-08-03] MEDS ORDERED: ROCURONIUM BROMIDE 10 MG/ML 5 ML VIAL IVP ONE (12:00)
[2020-08-03] MEDS: INSULIN REGULAR, HUMAN 100 UNITS/ML SQ PRN ×3 (12:53→20:33)
[2020-08-03] MEDS: CASPOFUNGIN ACETATE 50 MG in SODIUM CHLORIDE 0.9% 250 ML IV SCH (15:47)
[2020-08-03] MEDS: LEVOFLOXACIN 750 MG/D5% WATER 150 ML IV SCH (16:52)
[2020-08-03] MEDS ORDERED: [UNRECOGNIZED DRUG - OTHER] IV SCH ×23 (22:00)
[2020-08-03] MEDS ORDERED: SODIUM PHOS M BASIC D BASIC IV SCH ×23 (22:00)
[2020-08-03] MEDS ORDERED: SODIUM CHLORIDE IV SCH ×23 (22:00)
[2020-08-03] MEDS ORDERED: TPN IV SCH ×23 (22:00)
[2020-08-04 03:48] VITALS: BP 128/66
[2020-08-04] MEDS: HYDROmorphone 2 MG/ML SYRINGE IVP PRN ×3 (04:04→20:25)
[2020-08-04] MEDS: MEROPENEM 1 GM in SODIUM CHLORIDE 0.9% 100 ML IV SCH ×3 (05:50→21:41)
[2020-08-04] MEDS: ALBUMIN HUMAN 25%-12.5GM/50ML 50 ML IV SCH ×3 (05:50→21:41)
[2020-08-04] MEDS: INSULIN REGULAR, HUMAN 100 UNITS/ML SQ PRN ×3 (06:07→18:07)
[2020-08-04 06:14] LABS: GLUCOMETER DEV NAME(LOC) 5N.1B; GLUCOSE,POINT OF CARE 154 MG/DL (70-110)
[2020-08-04 06:14] LABS: GLUCOMETER DEV NAME(LOC) 5N.1B; GLUCOSE,POINT OF CARE 302 MG/DL (70-110)
[2020-08-04 07:01] LABS: ANION GAP 5 mmol/L (8-16); C-REACTIVE PROTEIN QUANT 1.59 mg/dL (0.00-0.30); CALCIUM, TOTAL 9.8 mg/dL (8.8-10.5); CARBON DIOXIDE 28 mmol/L (22-29); CHLORIDE 104 mmol/L (98-107); GLUCOSE,RANDOM 108 mg/dL (70-110); PHOSPHORUS 2.9 mg/dL (2.5-4.9); POTASSIUM 3.6 mmol/L (3.5-5.1); SODIUM SERUM 137 mmol/L (136-145); UREA NITROGEN, BLOOD 18 mg/dL (7-18)
[2020-08-04 07:02] LABS: HEMATOCRIT 26.5 % (36-46); HEMOGLOBIN 8.8 g/dL (12.0-16.0); MEAN CORPUSCULAR HEMOGLOBIN 30.6 pg (26.0-34.0); MEAN CORPUSCULAR HGB CONC 33.1 G/dL (31.0-37.0); MEAN CORPUSCULAR VOLUME 92 fL (80-100); PLATELET COUNT (AUTO) 247 K/uL (150-450); RED BLOOD CELL COUNT(AUTO) 2.87 MIL/uL (4.00-5.20); RED CELL DISTRIBUTION WIDTH 15.7 % (11.5-14.5)
[2020-08-04 07:03] LABS: GLOMERULAR FILTR. RATE CALC > 60 mL/min (>60)
[2020-08-04 07:50] VITALS: BP 108/47
[2020-08-04 08:34] LABS: GLUCOMETER DEV NAME(LOC) 5N.3; GLUCOSE,POINT OF CARE 244 MG/DL (70-110)
[2020-08-04 08:34] LABS: GLUCOMETER DEV NAME(LOC) 5N.3; GLUCOSE,POINT OF CARE 342 MG/DL (70-110)
[2020-08-04 08:34] LABS: GLUCOMETER DEV NAME(LOC) 5N.3; GLUCOSE,POINT OF CARE 302 MG/DL (70-110)
[2020-08-04] MEDS: OXYGEN THERAPY IH SCH ×2 (08:52→20:24)
[2020-08-04] MEDS: FAMOTIDINE 10 MG/ML 2 ML VIAL IVP SCH ×2 (08:53→20:24)
[2020-08-04] MEDS: THIAMINE 100 MG/ML 2 ML VIAL IVP SCH (08:53)
[2020-08-04] MEDS: ENOXAPARIN SODIUM 30 MG/0.3 ML PF SYRINGE SQ SCH ×2 (08:53→20:25)
[2020-08-04] MEDS: FLUCONAZOLE 400 MG/NACL ISOOSM 200 ML IV SCH (08:54)
[2020-08-04] MEDS ORDERED: MAGNESIUM SULFATE 3 GM in DEXTROSE 5%-WATER 100 ML IV ONE (09:00)
[2020-08-04] MEDS ORDERED: FLUCONAZOLE 200 MG TABLET PO SCH (09:00)
[2020-08-04 10:45] LABS: BAND NEUTROPHILS % (MANUAL) 3 % (0-5); LYMPHOCYTES % (MANUAL) 20 % (22-44); MONOCYTES % (MANUAL) 7 % (2-9); SEGMENTED NEUTROPHILS % 70 % (40-70)
[2020-08-04 12:20] VITALS: BP 130/70
[2020-08-04 16:35] VITALS: BP 113/56
[2020-08-04] MEDS: INSULIN GLARGINE,HUM.REC.ANLOG 100 UNITS/ML SQ SCH (18:06)
[2020-08-04 21:25] VITALS: BP 112/62
[2020-08-04 21:35] LABS: GLUCOMETER DEV NAME(LOC) 5N.3; GLUCOSE,POINT OF CARE 222 MG/DL (70-110)
[2020-08-04] MEDS ORDERED: SODIUM CHLORIDE IV SCH ×12 (22:00)
[2020-08-04] MEDS ORDERED: SODIUM PHOS M BASIC D BASIC IV SCH ×12 (22:00)
[2020-08-04] MEDS ORDERED: [UNRECOGNIZED DRUG - OTHER] IV SCH ×12 (22:00)
[2020-08-04] MEDS ORDERED: TPN IV SCH ×12 (22:00)
[2020-08-05 00:50] VITALS: BP 109/63
[2020-08-05] MEDS: INSULIN REGULAR, HUMAN 100 UNITS/ML SQ PRN ×4 (01:34→17:33)
[2020-08-05 01:38] LABS: GLUCOMETER DEV NAME(LOC) 5N.1B; GLUCOSE,POINT OF CARE 194 MG/DL (70-110)
[2020-08-05 04:20] VITALS: BP 124/67
[2020-08-05 05:47] LABS: GLUCOMETER DEV NAME(LOC) 5S.2B; GLUCOSE,POINT OF CARE 203 MG/DL (70-110)
[2020-08-05] MEDS: ALBUMIN HUMAN 25%-12.5GM/50ML 50 ML IV SCH ×3 (06:14→22:21)
[2020-08-05] MEDS: MEROPENEM 1 GM in SODIUM CHLORIDE 0.9% 100 ML IV SCH ×3 (06:15→22:22)
[2020-08-05 07:35] VITALS: BP 112/59
[2020-08-05 08:17] LABS: ALBUMIN 3.1 g/dL (3.4-5.0); ANION GAP 7 mmol/L (8-16); C-REACTIVE PROTEIN QUANT 0.85 mg/dL (0.00-0.30); CALCIUM, TOTAL 10.1 mg/dL (8.8-10.5); CARBON DIOXIDE 27 mmol/L (22-29); CHLORIDE 100 mmol/L (98-107); CREATININE 0.76 mg/dL (0.60-1.30); GLUCOSE,RANDOM 136 mg/dL (70-110); PHOSPHORUS 2.7 mg/dL (2.5-4.9); POTASSIUM 3.7 mmol/L (3.5-5.1); SODIUM SERUM 134 mmol/L (136-145); UREA NITROGEN, BLOOD 20 mg/dL (7-18)
[2020-08-05 08:24] LABS: GLOMERULAR FILTR. RATE CALC > 60 mL/min (>60)
[2020-08-05] MEDS: FAMOTIDINE 10 MG/ML 2 ML VIAL IVP SCH ×2 (09:15→21:53)
[2020-08-05] MEDS: OXYGEN THERAPY IH SCH ×2 (09:16→21:54)
[2020-08-05] MEDS: FLUCONAZOLE 400 MG/NACL ISOOSM 200 ML IV SCH (09:16)
[2020-08-05] MEDS: THIAMINE 100 MG/ML 2 ML VIAL IVP SCH (09:16)
[2020-08-05] MEDS: INSULIN GLARGINE,HUM.REC.ANLOG 100 UNITS/ML SQ SCH (09:17)
[2020-08-05] MEDS: ENOXAPARIN SODIUM 30 MG/0.3 ML PF SYRINGE SQ SCH ×2 (09:20→21:44)
[2020-08-05 11:10] VITALS: BP 122/69
[2020-08-05 13:29] LABS: GLUCOMETER DEV NAME(LOC) 5S.2B; GLUCOSE,POINT OF CARE 140 MG/DL (70-110)
[2020-08-05] MEDS: HYDROmorphone 2 MG/ML SYRINGE IVP PRN ×2 (15:06→18:41)
[2020-08-05 15:30] VITALS: BP 106/58
[2020-08-05 17:59] LABS: GLUCOMETER DEV NAME(LOC) 5N.1B; GLUCOSE,POINT OF CARE 187 MG/DL (70-110)
[2020-08-05 18:00] LABS: GLUCOMETER DEV NAME(LOC) 5N.1B; GLUCOSE,POINT OF CARE 283 MG/DL (70-110)
[2020-08-05 19:15] VITALS: BP 130/64
[2020-08-05] MEDS ORDERED: TPN IV SCH ×12 (22:00)
[2020-08-05] MEDS ORDERED: SODIUM PHOS M BASIC D BASIC IV SCH ×12 (22:00)
[2020-08-05] MEDS ORDERED: SODIUM CHLORIDE IV SCH ×12 (22:00)
[2020-08-05] MEDS ORDERED: [UNRECOGNIZED DRUG - OTHER] IV SCH ×12 (22:00)
[2020-08-05] MEDS: ZINC OXIDE 20% 30 GM OINTMENT TP SCH (22:22)
[2020-08-05] MEDS ORDERED: SODIUM CHLORIDE 0.9% 250 ML IV ONE (23:51)
[2020-08-06 01:00] VITALS: BP 116/67
[2020-08-06 03:35] VITALS: BP 112/61
[2020-08-06 05:03] LABS: APPEARANCE,URINE CLOUDY (CLEAR); BILIRUBIN,URINE NEGATIVE (NEGATIVE); GLUCOSE, URINE (UA) 250 mg/dL (NEGATIVE); KETONES,URINE NEGATIVE (NEGATIVE); LEUKOCYTE ESTERASE ,URINE SMALL (NEGATIVE); NITRATE,URINE NEGATIVE (NEGATIVE); OCCULT BLOOD,URINE MODERATE (NEGATIVE); PROTEIN,URINE SEE CONFIRM (NEGATIVE); UROBILINOGEN,URINE 0.2 mg/dL (<=1.0)
[2020-08-06 05:08] LABS: SULFOSALICYLIC ACID,URINE 2+ (Negative)
[2020-08-06] MEDS: ALBUMIN HUMAN 25%-12.5GM/50ML 50 ML IV SCH (05:08)
[2020-08-06] MEDS: MEROPENEM 1 GM in SODIUM CHLORIDE 0.9% 100 ML IV SCH ×3 (05:08→22:32)
[2020-08-06 05:09] LABS: AMORPHOUS SEDIMENT,UR Moderate /LPF (None Seen); BACTERIA,URINE Moderate /HPF (None Seen); SQUAMOUS EPITHELIAL CELL,UR Few /LPF (None Seen)
[2020-08-06] MEDS ORDERED: RINGERS SOLUTION,LACTATED 1,000 ML IV ONE ×2 (05:13→09:00)
[2020-08-06] MEDS: HYDROmorphone 2 MG/ML SYRINGE IVP PRN ×2 (05:41→21:16)
[2020-08-06 07:31] LABS: BASOPHILS % (AUTO) 0.4 % (0.0-2.0); EOSINOPHILS % (AUTO) 2.2 % (1.0-6.0); HEMATOCRIT 28.8 % (36-46); HEMOGLOBIN 9.6 g/dL (12.0-16.0); LYMPHOCYTES # (AUTO) 2.3 K/uL (1.0-4.8); MEAN CORPUSCULAR HEMOGLOBIN 30.9 pg (26.0-34.0); MEAN CORPUSCULAR HGB CONC 33.5 G/dL (31.0-37.0); MEAN CORPUSCULAR VOLUME 92 fL (80-100); MONOCYTES # (AUTO) 0.8 K/uL (0.1-1.0); MONOCYTES % (AUTO) 9.3 % (2.0-9.0); NEUTROPHILS # (AUTO) 5.4 K/uL (1.8-7.7); NEUTROPHILS % (AUTO) 62.1 % (40.0-70.0); PLATELET COUNT (AUTO) 281 K/uL (150-450); RED BLOOD CELL COUNT(AUTO) 3.12 MIL/uL (4.00-5.20); RED CELL DISTRIBUTION WIDTH 15.8 % (11.5-14.5)
[2020-08-06 07:58] VITALS: BP 130/74
[2020-08-06 08:16] LABS: ANION GAP 9 mmol/L (8-16); CARBON DIOXIDE 28 mmol/L (22-29); CHLORIDE 98 mmol/L (98-107); GLUCOSE,RANDOM 242 mg/dL (70-110); SODIUM SERUM 135 mmol/L (136-145); UREA NITROGEN, BLOOD 24 mg/dL (7-18)
[2020-08-06 08:17] LABS: ALANINE AMINOTRANSFERASE 41 U/L (12-78); ALBUMIN 3.7 g/dL (3.4-5.0); ALKALINE PHOSPHATASE 184 U/L (46-116); BILIRUBIN,TOTAL 0.7 mg/dL (0.1-1.0); C-REACTIVE PROTEIN QUANT 0.73 mg/dL (0.00-0.30); CALCIUM, TOTAL 10.7 mg/dL (8.8-10.5); CREATININE 0.75 mg/dL (0.60-1.30); GLOMERULAR FILTR. RATE CALC > 60 mL/min (>60); PHOSPHORUS 4.4 mg/dL (2.5-4.9)
[2020-08-06 08:32] LABS: ASPARTATE AMINOTRANSFERASE 60 U/L (15-37); TOTAL PROTEIN, SERUM 7.8 g/dL (6.4-8.2)
[2020-08-06] MEDS: ZINC OXIDE 20% 30 GM OINTMENT TP SCH ×3 (09:00→21:18)
[2020-08-06] MEDS ORDERED: BACITRACIN 28 GM OINTMENT TP ONE (09:06)
[2020-08-06] MEDS ORDERED: SODIUM CL IRRIG SOLN BAG 3,000 ML IRRIG ONE (09:06)
[2020-08-06] MEDS ORDERED: FentaNYL CITRATE PF 100 MCG/2 ML VIAL IVP PRN (10:00)
[2020-08-06] MEDS ORDERED: ZINC OXIDE 20% 30 GM OINTMENT TP ONE (10:00)
[2020-08-06] MEDS ORDERED: HYDROmorphone 2 MG/ML SYRINGE IVP PRN (10:00)
[2020-08-06] MEDS ORDERED: MEPERIDINE-PF 25 MG/ML VIAL IVP PRN (10:00)
[2020-08-06 11:14] LABS: GLUCOMETER DEV NAME(LOC) 5N.1B; GLUCOSE,POINT OF CARE 229 MG/DL (70-110)
[2020-08-06 11:14] LABS: GLUCOMETER DEV NAME(LOC) 5N.1B; GLUCOSE,POINT OF CARE 218 MG/DL (70-110)
[2020-08-06 11:47] VITALS: BP 119/58
[2020-08-06] MEDS: FAMOTIDINE 10 MG/ML 2 ML VIAL IVP SCH ×2 (12:32→21:14)
[2020-08-06] MEDS: FLUCONAZOLE 400 MG/NACL ISOOSM 200 ML IV SCH (12:33)
[2020-08-06] MEDS: ENOXAPARIN SODIUM 30 MG/0.3 ML PF SYRINGE SQ SCH ×2 (12:33→21:15)
[2020-08-06] MEDS: THIAMINE 100 MG/ML 2 ML VIAL IVP SCH (12:33)
[2020-08-06] MEDS: INSULIN GLARGINE,HUM.REC.ANLOG 100 UNITS/ML SQ SCH (12:35)
[2020-08-06] MEDS: OXYGEN THERAPY IH SCH ×3 (12:45→21:13)
[2020-08-06 15:45] VITALS: BP 114/72
[2020-08-06] MEDS: INSULIN REGULAR, HUMAN 100 UNITS/ML SQ PRN ×2 (18:27→23:35)
[2020-08-06 21:05] VITALS: BP 121/58
[2020-08-06] MEDS ORDERED: SODIUM CHLORIDE IV SCH ×12 (22:00)
[2020-08-06] MEDS ORDERED: TPN IV SCH ×12 (22:00)
[2020-08-06] MEDS ORDERED: [UNRECOGNIZED DRUG - OTHER] IV SCH ×12 (22:00)
[2020-08-06] MEDS ORDERED: SODIUM PHOS M BASIC D BASIC IV SCH ×12 (22:00)
[2020-08-06 23:00] LABS: GLUCOMETER DEV NAME(LOC) 5S.1; GLUCOSE,POINT OF CARE 249 MG/DL (70-110)
[2020-08-06 23:42] LABS: GLUCOMETER DEV NAME(LOC) 6N.1; GLUCOSE,POINT OF CARE 268 MG/DL (70-110)
[2020-08-07 04:13] VITALS: BP 109/56
[2020-08-07] MEDS: MEROPENEM 1 GM in SODIUM CHLORIDE 0.9% 100 ML IV SCH ×3 (05:13→22:03)
[2020-08-07] MEDS: INSULIN REGULAR, HUMAN 100 UNITS/ML SQ PRN ×4 (06:05→21:59)
[2020-08-07 06:29] LABS: GLUCOMETER DEV NAME(LOC) 6N.1; GLUCOSE,POINT OF CARE 187 MG/DL (70-110)
[2020-08-07 07:06] LABS: ANION GAP 7 mmol/L (8-16); CALCIUM, TOTAL 10.9 mg/dL (8.8-10.5); CARBON DIOXIDE 27 mmol/L (22-29); CHLORIDE 102 mmol/L (98-107); CREATININE 0.89 mg/dL (0.60-1.30); GLUCOSE,RANDOM 212 mg/dL (70-110); PHOSPHORUS 2.7 mg/dL (2.5-4.9); POTASSIUM 4.1 mmol/L (3.5-5.1); SODIUM SERUM 136 mmol/L (136-145); UREA NITROGEN, BLOOD 30 mg/dL (7-18)
[2020-08-07 07:15] LABS: GLOMERULAR FILTR. RATE CALC > 60 mL/min (>60)
[2020-08-07 07:24] LABS: GLUCOMETER DEV NAME(LOC) 5N.3; GLUCOSE,POINT OF CARE 182 MG/DL (70-110)
[2020-08-07 08:45] VITALS: BP 118/54
[2020-08-07] MEDS: FAMOTIDINE 10 MG/ML 2 ML VIAL IVP SCH ×2 (08:52→21:22)
[2020-08-07] MEDS: ENOXAPARIN SODIUM 30 MG/0.3 ML PF SYRINGE SQ SCH ×2 (08:52→21:04)
[2020-08-07] MEDS: FLUCONAZOLE 400 MG/NACL ISOOSM 200 ML IV SCH (08:53)
[2020-08-07] MEDS: HYDROmorphone 2 MG/ML SYRINGE IVP PRN ×4 (08:54→21:24)
[2020-08-07] MEDS: THIAMINE 100 MG/ML 2 ML VIAL IVP SCH (09:12)
[2020-08-07] MEDS: ZINC OXIDE 20% 30 GM OINTMENT TP SCH ×3 (09:13→21:04)
[2020-08-07 14:13] LABS: GLUCOMETER DEV NAME(LOC) 4E.2; GLUCOSE,POINT OF CARE 322 MG/DL (70-110)
[2020-08-07 15:54] VITALS: BP 94/55
[2020-08-07] MEDS: OXYGEN THERAPY IH SCH ×2 (20:00)
[2020-08-07 20:28] VITALS: BP 106/55
[2020-08-07] MEDS ORDERED: 0.9% SODIUM CHLORIDE 10 ML SYRINGE IVP PRN (21:30)
[2020-08-07] MEDS ORDERED: LIDOCAINE 1% 10 ML VIAL SQ ONE (21:30)
[2020-08-07] MEDS ORDERED: [UNRECOGNIZED DRUG - OTHER] IV SCH ×12 (22:00)
[2020-08-07] MEDS ORDERED: SODIUM PHOS M BASIC D BASIC IV SCH ×12 (22:00)
[2020-08-07] MEDS ORDERED: SODIUM CHLORIDE IV SCH ×12 (22:00)
[2020-08-07] MEDS ORDERED: TPN IV SCH ×12 (22:00)
[2020-08-08] MEDS: HYDROmorphone 2 MG/ML SYRINGE IVP PRN ×4 (01:49→20:30)
[2020-08-08 02:20] LABS: GLUCOMETER DEV NAME(LOC) 6N.1; GLUCOSE,POINT OF CARE 203 MG/DL (70-110)
[2020-08-08 02:20] LABS: GLUCOMETER DEV NAME(LOC) 6N.1; GLUCOSE,POINT OF CARE 213 MG/DL (70-110)
[2020-08-08 04:55] VITALS: BP 97/56
[2020-08-08] MEDS: MEROPENEM 1 GM in SODIUM CHLORIDE 0.9% 100 ML IV SCH ×3 (05:32→22:04)
[2020-08-08] MEDS: INSULIN REGULAR, HUMAN 100 UNITS/ML SQ PRN ×4 (05:40→20:55)
[2020-08-08 07:07] LABS: ALANINE AMINOTRANSFERASE 64 U/L (12-78); ALBUMIN 3.2 g/dL (3.4-5.0); ALKALINE PHOSPHATASE 212 U/L (46-116); ANION GAP 4 mmol/L (8-16); ASPARTATE AMINOTRANSFERASE 69 U/L (15-37); BILIRUBIN,TOTAL 0.6 mg/dL (0.1-1.0); CALCIUM, TOTAL 10.9 mg/dL (8.8-10.5); CARBON DIOXIDE 31 mmol/L (22-29); CHLORIDE 102 mmol/L (98-107); CREATININE 0.85 mg/dL (0.60-1.30); GLUCOSE,RANDOM 229 mg/dL (70-110); PHOSPHORUS 2.4 mg/dL (2.5-4.9); POTASSIUM 4.4 mmol/L (3.5-5.1); SODIUM SERUM 137 mmol/L (136-145); TOTAL PROTEIN, SERUM 7.9 g/dL (6.4-8.2); UREA NITROGEN, BLOOD 29 mg/dL (7-18)
[2020-08-08 07:18] LABS: GLOMERULAR FILTR. RATE CALC > 60 mL/min (>60)
[2020-08-08] MEDS: OXYGEN THERAPY IH SCH ×2 (08:00→12:12)
[2020-08-08 08:11] LABS: COVID AG,FIA SOURCE NASOPHARYNGEAL
[2020-08-08] MEDS: ENOXAPARIN SODIUM 30 MG/0.3 ML PF SYRINGE SQ SCH ×2 (08:12→20:31)
[2020-08-08] MEDS: THIAMINE 100 MG/ML 2 ML VIAL IVP SCH (08:13)
[2020-08-08] MEDS: FLUCONAZOLE 400 MG/NACL ISOOSM 200 ML IV SCH (08:13)
[2020-08-08] MEDS: FAMOTIDINE 10 MG/ML 2 ML VIAL IVP SCH ×2 (08:13→20:30)
[2020-08-08 09:09] VITALS: BP 110/52
[2020-08-08 11:12] LABS: GLUCOMETER DEV NAME(LOC) 6N.1; GLUCOSE,POINT OF CARE 197 MG/DL (70-110)
[2020-08-08 11:44] LABS: GLUCOMETER DEV NAME(LOC) 4E.2; GLUCOSE,POINT OF CARE 353 MG/DL (70-110)
[2020-08-08] MEDS ORDERED: SODIUM CHLORIDE 0.9% 500 ML IV ONE (13:49)
[2020-08-08] MEDS: ACETAMINOPHEN 325 MG TABLET PO PRN (15:32)
[2020-08-08 15:59] VITALS: BP 107/52
[2020-08-08 17:50] LABS: GLUCOMETER DEV NAME(LOC) 4E.2; GLUCOSE,POINT OF CARE 257 MG/DL (70-110)
[2020-08-08] MEDS ORDERED: SODIUM PHOS,M-BASIC-D-BASIC 20 MEQ in DEXTROSE 5%-WATER 100 ML IV ONE (18:45)
[2020-08-08] MEDS ORDERED: HYDROCODONE/ACETAMINOPHEN 5-325 MG TABLET PO PRN (19:30)
[2020-08-08 20:17] VITALS: BP 100/52
[2020-08-08 21:19] LABS: GLUCOMETER DEV NAME(LOC) 4E.2; GLUCOSE,POINT OF CARE 224 MG/DL (70-110)
[2020-08-08] MEDS ORDERED: SODIUM CHLORIDE IV SCH ×12 (22:00)
[2020-08-08] MEDS ORDERED: TPN IV SCH ×12 (22:00)
[2020-08-08] MEDS ORDERED: SODIUM PHOS M BASIC D BASIC IV SCH ×12 (22:00)
[2020-08-08] MEDS ORDERED: [UNRECOGNIZED DRUG - OTHER] IV SCH ×12 (22:00)
[2020-08-08 23:59] VITALS: BP 106/54
[2020-08-09 04:21] VITALS: BP 121/61
[2020-08-09] MEDS: HYDROmorphone 2 MG/ML SYRINGE IVP PRN ×4 (05:14→21:11)
[2020-08-09 07:43] LABS: ANION GAP 4 mmol/L (8-16); CARBON DIOXIDE 31 mmol/L (22-29); CHLORIDE 96 mmol/L (98-107); GLUCOSE,RANDOM 232 mg/dL (70-110); PHOSPHORUS 3.5 mg/dL (2.5-4.9); POTASSIUM 4.9 mmol/L (3.5-5.1); SODIUM SERUM 131 mmol/L (136-145); UREA NITROGEN, BLOOD 32 mg/dL (7-18)
[2020-08-09 08:05] LABS: GLOMERULAR FILTR. RATE CALC > 60 mL/min (>60)
[2020-08-09 08:12] VITALS: BP 111/50
[2020-08-09] MEDS: THIAMINE 100 MG/ML 2 ML VIAL IVP SCH (08:30)
[2020-08-09] MEDS: FAMOTIDINE 10 MG/ML 2 ML VIAL IVP SCH ×2 (08:30→21:04)
[2020-08-09] MEDS: ENOXAPARIN SODIUM 30 MG/0.3 ML PF SYRINGE SQ SCH ×2 (08:31→21:05)
[2020-08-09] MEDS: FLUCONAZOLE 400 MG/NACL ISOOSM 200 ML IV SCH (09:07)
[2020-08-09] MEDS: ZINC OXIDE 20% 30 GM OINTMENT TP SCH ×3 (09:07→21:00)
[2020-08-09 12:14] LABS: GLUCOMETER DEV NAME(LOC) 4E.2; GLUCOSE,POINT OF CARE 308 MG/DL (70-110)
[2020-08-09] MEDS: INSULIN REGULAR, HUMAN 100 UNITS/ML SQ PRN ×3 (12:19→21:31)
[2020-08-09 13:30] LABS: GLUCOMETER DEV NAME(LOC) 6N.1; GLUCOSE,POINT OF CARE 231 MG/DL (70-110)
[2020-08-09] MEDS: MEROPENEM 1 GM in SODIUM CHLORIDE 0.9% 100 ML IV SCH ×2 (15:14→23:43)
[2020-08-09 15:36] VITALS: BP 104/53
[2020-08-09 17:19] LABS: GLUCOMETER DEV NAME(LOC) 6N.1; GLUCOSE,POINT OF CARE 233 MG/DL (70-110)
[2020-08-09 19:35] VITALS: BP 111/60
[2020-08-09] MEDS: OXYGEN THERAPY IH SCH (21:08)
[2020-08-09 23:18] VITALS: BP 106/58
[2020-08-10 00:20] LABS: GLUCOMETER DEV NAME(LOC) 6N.2; GLUCOSE,POINT OF CARE 220 MG/DL (70-110)
[2020-08-10] MEDS: HYDROmorphone 2 MG/ML SYRINGE IVP PRN (03:40)
[2020-08-10 04:38] VITALS: BP 106/62
[2020-08-10] MEDS: MEROPENEM 1 GM in SODIUM CHLORIDE 0.9% 100 ML IV SCH ×3 (06:03→23:31)
[2020-08-10] MEDS: INSULIN REGULAR, HUMAN 100 UNITS/ML SQ PRN ×4 (06:19→21:09)
[2020-08-10 07:41] LABS: ALBUMIN 3.2 g/dL (3.4-5.0); BILIRUBIN,TOTAL 0.5 mg/dL (0.1-1.0); CALCIUM, TOTAL 11.3 mg/dL (8.8-10.5); CREATININE 1.03 mg/dL (0.60-1.30); MAGNESIUM 1.5 mg/dL (1.80-2.40); PHOSPHORUS 2.8 mg/dL (2.5-4.9); TOTAL PROTEIN, SERUM 8.2 g/dL (6.4-8.2)
[2020-08-10] MEDS: INSULIN GLARGINE,HUM.REC.ANLOG 100 UNITS/ML SQ SCH (08:30)
[2020-08-10] MEDS: FAMOTIDINE 10 MG/ML 2 ML VIAL IVP SCH ×2 (08:33→21:01)
[2020-08-10] MEDS: THIAMINE 100 MG/ML 2 ML VIAL IVP SCH (08:33)
[2020-08-10] MEDS: ENOXAPARIN SODIUM 30 MG/0.3 ML PF SYRINGE SQ SCH ×2 (08:34→21:01)
[2020-08-10] MEDS: FLUCONAZOLE 400 MG/NACL ISOOSM 200 ML IV SCH (08:36)
[2020-08-10 09:20] VITALS: BP 108/62
[2020-08-10] MEDS: ZINC OXIDE 20% 30 GM OINTMENT TP SCH ×3 (11:00→21:09)
[2020-08-10 12:08] LABS: GLUCOMETER DEV NAME(LOC) 6N.2; GLUCOSE,POINT OF CARE 211 MG/DL (70-110)
[2020-08-10 16:05] VITALS: BP 102/60
[2020-08-10 18:37] LABS: GLUCOMETER DEV NAME(LOC) 6S.1; GLUCOSE,POINT OF CARE 169 MG/DL (70-110)
[2020-08-10 19:43] VITALS: BP 117/66
[2020-08-10] MEDS: OXYGEN THERAPY IH SCH (20:00)
[2020-08-11 00:08] LABS: GLUCOMETER DEV NAME(LOC) 6S.1; GLUCOSE,POINT OF CARE 223 MG/DL (70-110)
[2020-08-11 00:43] VITALS: BP 112/60
[2020-08-11 04:41] VITALS: BP 111/65
[2020-08-11] MEDS: INSULIN REGULAR, HUMAN 100 UNITS/ML SQ PRN ×4 (06:17→21:16)
[2020-08-11] MEDS: MEROPENEM 1 GM in SODIUM CHLORIDE 0.9% 100 ML IV SCH ×3 (06:20→23:26)
[2020-08-11 06:52] LABS: MAGNESIUM 1.4 mg/dL (1.80-2.40); PHOSPHORUS 3.3 mg/dL (2.5-4.9)
[2020-08-11 07:11] LABS: GLUCOMETER DEV NAME(LOC) 6N.2; GLUCOSE,POINT OF CARE 178 MG/DL (70-110)
[2020-08-11] MEDS: OXYGEN THERAPY IH SCH ×2 (08:00→20:00)
[2020-08-11 08:04] VITALS: BP 104/63
[2020-08-11] MEDS: ZINC OXIDE 20% 30 GM OINTMENT TP SCH ×3 (09:00→21:15)
[2020-08-11] MEDS: THIAMINE 100 MG/ML 2 ML VIAL IVP SCH (09:03)
[2020-08-11] MEDS: FAMOTIDINE 10 MG/ML 2 ML VIAL IVP SCH ×2 (09:03→21:15)
[2020-08-11] MEDS: ENOXAPARIN SODIUM 30 MG/0.3 ML PF SYRINGE SQ SCH ×2 (09:04→20:38)
[2020-08-11] MEDS: FLUCONAZOLE 400 MG/NACL ISOOSM 200 ML IV SCH (09:05)
[2020-08-11] MEDS: INSULIN GLARGINE,HUM.REC.ANLOG 100 UNITS/ML SQ SCH (09:08)
[2020-08-11] MEDS: MAGNESIUM SULFATE 2 GM/WATER 50 ML IV PRN (11:05)
[2020-08-11] MEDS ORDERED: POTASSIUM CHL 20 MEQ/D5-0.45NS 1,000 ML IV SCH (12:15)
[2020-08-11 14:35] LABS: GLUCOMETER DEV NAME(LOC) 6N.2; GLUCOSE,POINT OF CARE 208 MG/DL (70-110)
[2020-08-11] MEDS ORDERED: SODIUM CL IRRIG SOLN BOTTLE 250 ML IRRIG ONE (18:01)
[2020-08-11] MEDS: HYDROCODONE/ACETAMINOPHEN 5-325 MG TABLET PO PRN (18:04)
[2020-08-11 20:30] VITALS: BP 107/59
[2020-08-11] MEDS: HYDROmorphone 2 MG/ML SYRINGE IVP PRN (23:25)
[2020-08-12 00:59] VITALS: BP 96/58
[2020-08-12 01:50] LABS: GLUCOMETER DEV NAME(LOC) 6S.1; GLUCOSE,POINT OF CARE 154 MG/DL (70-110)
[2020-08-12 01:50] LABS: GLUCOMETER DEV NAME(LOC) 6N.2; GLUCOSE,POINT OF CARE 182 MG/DL (70-110)
[2020-08-12 04:31] VITALS: BP 94/51
[2020-08-12] MEDS: MEROPENEM 1 GM in SODIUM CHLORIDE 0.9% 100 ML IV SCH ×2 (05:40→18:13)
[2020-08-12] MEDS: INSULIN REGULAR, HUMAN 100 UNITS/ML SQ PRN ×3 (05:42→16:51)
[2020-08-12 06:12] LABS: GLUCOMETER DEV NAME(LOC) 6S.1; GLUCOSE,POINT OF CARE 214 MG/DL (70-110)
[2020-08-12 07:06] LABS: BILIRUBIN,TOTAL 0.6 mg/dL (0.1-1.0); C-REACTIVE PROTEIN QUANT 0.63 mg/dL (0.00-0.30)
[2020-08-12 07:22] LABS: ALBUMIN 3.3 g/dL (3.4-5.0); CREATININE 1.9 mg/dL (0.60-1.30); POTASSIUM 5.5 mmol/L (3.5-5.1); TOTAL PROTEIN, SERUM 8.9 g/dL (6.4-8.2)
[2020-08-12 07:27] LABS: CALCIUM, TOTAL 11.7 mg/dL (8.8-10.5)
[2020-08-12 07:40] VITALS: BP 99/58
[2020-08-12] MEDS: OXYGEN THERAPY IH SCH (08:00)
[2020-08-12 08:03] LABS: MAGNESIUM 2.4 mg/dL (1.80-2.40); PHOSPHORUS 5.3 mg/dL (2.5-4.9)
[2020-08-12] MEDS: ENOXAPARIN SODIUM 30 MG/0.3 ML PF SYRINGE SQ SCH ×3 (08:36→20:27)
[2020-08-12] MEDS: HYDROCODONE/ACETAMINOPHEN 5-325 MG TABLET PO PRN (08:37)
[2020-08-12] MEDS: FAMOTIDINE 10 MG/ML 2 ML VIAL IVP SCH ×2 (08:38→20:20)
[2020-08-12] MEDS: THIAMINE 100 MG/ML 2 ML VIAL IVP SCH (08:38)
[2020-08-12] MEDS: INSULIN GLARGINE,HUM.REC.ANLOG 100 UNITS/ML SQ SCH (08:51)
[2020-08-12] MEDS ORDERED: FLUCONAZOLE 200 MG TABLET PO SCH (09:00)
[2020-08-12] MEDS: ZINC OXIDE 20% 30 GM OINTMENT TP SCH ×3 (09:00→20:20)
[2020-08-12] MEDS: SODIUM CHLORIDE 0.9% 1,000 ML IV SCH (09:52)
[2020-08-12 13:12] LABS: GLUCOMETER DEV NAME(LOC) 6N.2; GLUCOSE,POINT OF CARE 187 MG/DL (70-110)
[2020-08-12] MEDS: HYDROmorphone 2 MG/ML SYRINGE IVP PRN (16:48)
[2020-08-12 17:23] LABS: GLUCOMETER DEV NAME(LOC) 6N.2; GLUCOSE,POINT OF CARE 184 MG/DL (70-110)
[2020-08-12 19:25] VITALS: BP 102/58
[2020-08-12 22:30] LABS: GLUCOMETER DEV NAME(LOC) 6S.1; GLUCOSE,POINT OF CARE 137 MG/DL (70-110)
[2020-08-12 23:34] VITALS: BP 117/65
[2020-08-13] MEDS: SODIUM CHLORIDE 0.9% 1,000 ML IV SCH ×2 (00:16→15:00)
[2020-08-13 03:00] VITALS: BP 105/53
[2020-08-13] MEDS: HYDROmorphone 2 MG/ML SYRINGE IVP PRN ×3 (03:13→20:30)
[2020-08-13 05:42] LABS: GLUCOMETER DEV NAME(LOC) 4E.2; GLUCOSE,POINT OF CARE 197 MG/DL (70-110)
[2020-08-13] MEDS: INSULIN REGULAR, HUMAN 100 UNITS/ML SQ PRN ×3 (05:53→16:50)
[2020-08-13] MEDS: MEROPENEM 1 GM in SODIUM CHLORIDE 0.9% 100 ML IV SCH ×2 (06:47→18:44)
[2020-08-13] MEDS ORDERED: SODIUM CHLORIDE 0.9% 1,000 ML IV SCH (07:15)
[2020-08-13 08:35] VITALS: BP 110/64
[2020-08-13] MEDS: FAMOTIDINE 10 MG/ML 2 ML VIAL IVP SCH ×2 (08:48→20:34)
[2020-08-13] MEDS: ENOXAPARIN SODIUM 30 MG/0.3 ML PF SYRINGE SQ SCH ×2 (08:48→20:39)
[2020-08-13] MEDS: INSULIN GLARGINE,HUM.REC.ANLOG 100 UNITS/ML SQ SCH (08:49)
[2020-08-13] MEDS: THIAMINE 100 MG/ML 2 ML VIAL IVP SCH (08:49)
[2020-08-13] MEDS: ZINC OXIDE 20% 30 GM OINTMENT TP SCH ×3 (09:00→20:42)
[2020-08-13 10:26] LABS: CALCIUM, TOTAL 11.1 mg/dL (8.8-10.5); CREATININE 1.31 mg/dL (0.60-1.30); MAGNESIUM 1.7 mg/dL (1.80-2.40); PHOSPHORUS 3.2 mg/dL (2.5-4.9); POTASSIUM 4.9 mmol/L (3.5-5.1)
[2020-08-13 12:21] LABS: ALBUMIN 3.2 g/dL (3.4-5.0); BILIRUBIN,DIRECT 0.3 mg/dL (0.00-0.20); BILIRUBIN,TOTAL 0.5 mg/dL (0.1-1.0); TOTAL PROTEIN, SERUM 8.4 g/dL (6.4-8.2)
[2020-08-13 16:04] VITALS: BP 108/67
[2020-08-13 16:47] LABS: GLUCOMETER DEV NAME(LOC) 6S.1; GLUCOSE,POINT OF CARE 174 MG/DL (70-110)
[2020-08-13] MEDS: MAGNESIUM OXIDE 400 MG TABLET PO PRN ×2 (17:51→23:59)
[2020-08-13 19:30] LABS: GLUCOMETER DEV NAME(LOC) 6N.2; GLUCOSE,POINT OF CARE 119 MG/DL (70-110)
[2020-08-13 20:05] VITALS: BP 117/63
[2020-08-13 23:40] VITALS: BP 109/62
[2020-08-14] MEDS: SODIUM CHLORIDE 0.9% 1,000 ML IV SCH ×2 (01:15→14:24)
[2020-08-14] MEDS: HYDROmorphone 2 MG/ML SYRINGE IVP PRN ×3 (02:11→18:49)
[2020-08-14 02:16] LABS: GLUCOMETER DEV NAME(LOC) 6N.2; GLUCOSE,POINT OF CARE 177 MG/DL (70-110)
[2020-08-14] MEDS: MAGNESIUM OXIDE 400 MG TABLET PO PRN (05:02)
[2020-08-14 05:09] VITALS: BP 110/61
[2020-08-14 06:51] LABS: GLUCOMETER DEV NAME(LOC) 6N.2; GLUCOSE,POINT OF CARE 196 MG/DL (70-110)
[2020-08-14] MEDS: OXYGEN THERAPY IH SCH (08:00)
[2020-08-14 08:16] VITALS: BP 106/52
[2020-08-14 08:35] LABS: CALCIUM, TOTAL 10.6 mg/dL (8.8-10.5); CREATININE 1.12 mg/dL (0.60-1.30); MAGNESIUM 1.5 mg/dL (1.80-2.40); PHOSPHORUS 2.6 mg/dL (2.5-4.9); POTASSIUM 4.4 mmol/L (3.5-5.1)
[2020-08-14] MEDS: FAMOTIDINE 10 MG/ML 2 ML VIAL IVP SCH ×2 (09:09→20:04)
[2020-08-14] MEDS: THIAMINE 100 MG/ML 2 ML VIAL IVP SCH (09:10)
[2020-08-14] MEDS: ENOXAPARIN SODIUM 30 MG/0.3 ML PF SYRINGE SQ SCH ×2 (09:11→20:04)
[2020-08-14] MEDS: ZINC OXIDE 20% 30 GM OINTMENT TP SCH ×3 (09:11→21:08)
[2020-08-14] MEDS: INSULIN GLARGINE,HUM.REC.ANLOG 100 UNITS/ML SQ SCH (09:13)
[2020-08-14] MEDS ORDERED: SODIUM PHOS,M-BASIC-D-BASIC 20 MEQ in DEXTROSE 5%-WATER 100 ML IV ONE (11:15)
[2020-08-14] MEDS: MAGNESIUM SULFATE 2 GM/WATER 50 ML IV PRN (11:56)
[2020-08-14] MEDS: INSULIN REGULAR, HUMAN 100 UNITS/ML SQ PRN ×3 (12:06→23:29)
[2020-08-14 13:14] LABS: STONE COLOR Tan; STONE SIZE 8x6 mm; STONE WEIGHT 981 mg
[2020-08-14 15:41] VITALS: BP 93/56
[2020-08-14 17:11] LABS: GLUCOMETER DEV NAME(LOC) 6S.1; GLUCOSE,POINT OF CARE 225 MG/DL (70-110)
[2020-08-14 18:13] LABS: GLUCOMETER DEV NAME(LOC) 6N.2; GLUCOSE,POINT OF CARE 179 MG/DL (70-110)
[2020-08-14 20:15] VITALS: BP 116/61
[2020-08-14 23:53] VITALS: BP 137/73
[2020-08-15] MEDS: HYDROmorphone 2 MG/ML SYRINGE IVP PRN ×4 (00:30→13:17)
[2020-08-15 02:03] LABS: GLUCOMETER DEV NAME(LOC) 6N.2; GLUCOSE,POINT OF CARE 154 MG/DL (70-110)
[2020-08-15 03:40] VITALS: BP 118/65
[2020-08-15] MEDS: SODIUM CHLORIDE 0.9% 1,000 ML IV SCH ×2 (04:13→17:27)
[2020-08-15 07:12] LABS: ANION GAP 7 mmol/L (8-16); CALCIUM, TOTAL 10.5 mg/dL (8.8-10.5); CARBON DIOXIDE 24 mmol/L (22-29); CHLORIDE 97 mmol/L (98-107); CREATININE 0.89 mg/dL (0.60-1.30); GLUCOSE,RANDOM 100 mg/dL (70-110); PHOSPHORUS 2.7 mg/dL (2.5-4.9); POTASSIUM 4.6 mmol/L (3.5-5.1); SODIUM SERUM 128 mmol/L (136-145); UREA NITROGEN, BLOOD 24 mg/dL (7-18)
[2020-08-15 07:17] LABS: GLOMERULAR FILTR. RATE CALC > 60 mL/min (>60)
[2020-08-15 07:56] LABS: COVID AG,FIA SOURCE NASOPHARYNGEAL
[2020-08-15] MEDS: ENOXAPARIN SODIUM 30 MG/0.3 ML PF SYRINGE SQ SCH ×2 (09:21→20:37)
[2020-08-15] MEDS: MAGNESIUM OXIDE 400 MG TABLET PO PRN ×3 (09:21→21:23)
[2020-08-15] MEDS: ZINC OXIDE 20% 30 GM OINTMENT TP SCH ×3 (09:21→20:37)
[2020-08-15] MEDS: FAMOTIDINE 10 MG/ML 2 ML VIAL IVP SCH ×2 (09:22→20:37)
[2020-08-15] MEDS: THIAMINE 100 MG/ML 2 ML VIAL IVP SCH (09:22)
[2020-08-15] MEDS: INSULIN GLARGINE,HUM.REC.ANLOG 100 UNITS/ML SQ SCH (09:24)
[2020-08-15 10:00] VITALS: BP 108/49
[2020-08-15] MEDS: INSULIN REGULAR, HUMAN 100 UNITS/ML SQ PRN ×3 (12:16→20:49)
[2020-08-15] MEDS: HYDROCODONE/ACETAMINOPHEN 5-325 MG TABLET PO PRN (15:30)
[2020-08-15] MEDS ORDERED: SODIUM CL IRRIG SOLN BOTTLE 250 ML IRRIG ONE (16:31)
[2020-08-15 17:25] VITALS: BP 102/46
[2020-08-15 18:14] LABS: POTASSIUM,URINE RANDOM 65 mmol/L (12-75); SODIUM,URINE RANDOM 61 mmol/l (20-110)
[2020-08-15 18:30] LABS: ALANINE AMINOTRANSFERASE 65 U/L (12-78); ALBUMIN 3.1 g/dL (3.4-5.0); ALKALINE PHOSPHATASE 337 U/L (46-116); ASPARTATE AMINOTRANSFERASE 58 U/L (15-37); TOTAL PROTEIN, SERUM 8.5 g/dL (6.4-8.2)
[2020-08-15 18:43] LABS: BILIRUBIN,TOTAL 0.4 mg/dL (0.1-1.0)
[2020-08-15 19:00] VITALS: BP 94/48
[2020-08-15] MEDS: OXYGEN THERAPY IH SCH (20:37)
[2020-08-15 21:53] LABS: GLUCOMETER DEV NAME(LOC) 6S.1; GLUCOSE,POINT OF CARE 213 MG/DL (70-110)
[2020-08-15 23:43] VITALS: BP 93/58
[2020-08-16] MEDS: ACETAMINOPHEN 325 MG TABLET PO PRN ×2 (00:23→06:45)
[2020-08-16 04:00] VITALS: BP 95/68
[2020-08-16 04:11] LABS: GLUCOMETER DEV NAME(LOC) 6N.2; GLUCOSE,POINT OF CARE 148 MG/DL (70-110)
[2020-08-16 04:11] LABS: GLUCOMETER DEV NAME(LOC) 6N.2; GLUCOSE,POINT OF CARE 106 MG/DL (70-110)
[2020-08-16 04:12] LABS: GLUCOMETER DEV NAME(LOC) 6N.2; GLUCOSE,POINT OF CARE 166 MG/DL (70-110)
[2020-08-16] MEDS: INSULIN REGULAR, HUMAN 100 UNITS/ML SQ PRN ×2 (06:03→12:01)
[2020-08-16] MEDS: SODIUM CHLORIDE 0.9% 1,000 ML IV SCH (06:49)
[2020-08-16 07:03] LABS: CALCIUM, TOTAL 10.4 mg/dL (8.8-10.5); CREATININE 0.95 mg/dL (0.60-1.30); MAGNESIUM 1.5 mg/dL (1.80-2.40); PHOSPHORUS 2.7 mg/dL (2.5-4.9); POTASSIUM 5.1 mmol/L (3.5-5.1)
[2020-08-16] MEDS: ENOXAPARIN SODIUM 30 MG/0.3 ML PF SYRINGE SQ SCH (08:34)
[2020-08-16] MEDS: FAMOTIDINE 10 MG/ML 2 ML VIAL IVP SCH (08:34)
[2020-08-16] MEDS: ZINC OXIDE 20% 30 GM OINTMENT TP SCH ×2 (08:34→15:22)
[2020-08-16] MEDS: THIAMINE 100 MG/ML 2 ML VIAL IVP SCH (08:34)
[2020-08-16] MEDS: INSULIN GLARGINE,HUM.REC.ANLOG 100 UNITS/ML SQ SCH (08:36)
[2020-08-16] MEDS: HYDROmorphone 2 MG/ML SYRINGE IVP PRN ×2 (08:48→17:34)
[2020-08-16 08:50] VITALS: BP 118/59
[2020-08-16] MEDS: MAGNESIUM SULFATE 2 GM/WATER 50 ML IV PRN (12:32)
[2020-08-16 16:36] VITALS: BP 124/70
[2020-08-16 16:38] LABS: GLUCOMETER DEV NAME(LOC) 4E.2; GLUCOSE,POINT OF CARE 202 MG/DL (70-110)
[2020-08-16 16:41] LABS: GLUCOMETER DEV NAME(LOC) 6S.1; GLUCOSE,POINT OF CARE 167 MG/DL (70-110)
[2020-08-16 23:32] LABS: GLUCOMETER DEV NAME(LOC) 6S.1; GLUCOSE,POINT OF CARE 211 MG/DL (70-110)
== END 2020-08-16 18:36 | DRG 853 ==
LOC: EMS 15:33 → ICU 17:07 → 5S 23:15 → ICU 07-28 11:30 → ICUN 07-28 21:07 → ICU 07-29 21:52 → 5S 07-30 18:30 → 4E 08-06 20:58 → 6N 08-09 18:50
PROVIDERS: ADMIT Surgery; ATTEND Surgery
PROC: 0DB80ZZ Excision of Small Intestine, Open Approach (ICD-10-PCS; 2020-07-27)
PROC: 0D1B0Z4 Bypass Ileum to Cutaneous, Open Approach (ICD-10-PCS; principal; 2020-07-27 17:30)
PROC: 30233N1 Transfusion of Nonautologous Red Blood Cells into Peripheral Vein, Percutaneous Approach (ICD-10-PCS; 2020-07-30)
PROC: 0T778DZ Dilation of Left Ureter with Intraluminal Device, Via Natural or Artificial Opening Endoscopic (ICD-10-PCS; 2020-08-03)
PROC: 0TCB8ZZ Extirpation of Matter from Bladder, Via Natural or Artificial Opening Endoscopic (ICD-10-PCS; 2020-08-03)
PROC: 0TP98DZ Removal of Intraluminal Device from Ureter, Via Natural or Artificial Opening Endoscopic (ICD-10-PCS; 2020-08-03)
PROC: 0JB80ZZ Excision of Abdomen Subcutaneous Tissue and Fascia, Open Approach (ICD-10-PCS; 2020-08-06)
DX: A41.9 Sepsis, unspecified organism (principal); R65.21 Severe sepsis with septic shock; E43 Unspecified severe protein-calorie malnutrition; K65.1 Peritoneal abscess; E87.0 Hyperosmolality and hypernatremia; I42.9 Cardiomyopathy, unspecified; K63.2 Fistula of intestine; E87.1 Hypo-osmolality and hyponatremia; N39.0 Urinary tract infection, site not specified; T81.31XA Disruption of external operation (surgical) wound, not elsewhere classified, initial encounter; N17.9 Acute kidney failure, unspecified; Z20.828 Contact with and (suspected) exposure to other viral communicable diseases; D64.9 Anemia, unspecified; E11.9 Type 2 diabetes mellitus without complications; E78.5 Hyperlipidemia, unspecified; E83.42 Hypomagnesemia; E87.6 Hypokalemia; I10 Essential (primary) hypertension; Z68.27 Body mass index [BMI] 27.0-27.9, adult; E11.65 Type 2 diabetes mellitus with hyperglycemia; E78.00 Pure hypercholesterolemia, unspecified; E83.52 Hypercalcemia; E86.0 Dehydration; E87.5 Hyperkalemia; F03.90 Unspecified dementia, unspecified severity, without behavioral disturbance, psychotic disturbance, mood disturbance, and anxiety; I25.10 Atherosclerotic heart disease of native coronary artery without angina pectoris; N36.8 Other specified disorders of urethra; N81.10 Cystocele, unspecified; N81.6 Rectocele; K66.0 Peritoneal adhesions (postprocedural) (postinfection); Z90.49 Acquired absence of other specified parts of digestive tract; Z95.5 Presence of coronary angioplasty implant and graft; Z95.810 Presence of automatic (implantable) cardiac defibrillator
CPT/HCPCS: 74019; 74176; 82365; 82533; 82805; 83605; 83735; 83935; 83970; 84100; 84132; 84133; 84134; 84145; 84300; 85007; 86140; 86850; 86870; 86900; 86901; 86921; 87040; 87081; 87086; 87186; 87426; 88300; 88304; 93005; 97110; 97163; 97530; G0238; G0378; J0131; J0610; J0637; J0878; J1100; J1170; J1265; J1450; J1650; J1720; J1815; J1885; J1956; J2185; J2270; J2274; J2370; J2405; J2543; J2704; J2765; J3010; J3411; J3430; J3475; J3480; J3490; J7030; J7040; J7050; J7060; J7070; J7100; J7120; J7131; P9016; P9047; Q9966; 36415-L1; 36415-TC; 71045-TC; 80076-TC; C1716; X7700

== ENCOUNTER 2020-08-21 21:21 | Inpatient (IN) | payer MEDICARE, MEDICAID ==
[~2020-08-21] VITALS: Ht 154.9 cm; Wt 57.3 kg
[2020-08-21] MEDS ORDERED: ATROPINE SULFATE 0.1 MG/ML 10 ML SYRINGE IVP ONE (21:57)
[2020-08-21] MEDS ORDERED: CALCIUM GLUCONATE 100 MG/ML 10 ML IVP ONE (22:01)
[2020-08-21] MEDS ORDERED: DOPamine HCL 400 MG/D5%-WATER 250 ML IV ONE (22:05)
[2020-08-21] MEDS ORDERED: SODIUM BICARBONATE [ADULT] 8.4% 50 MEQ/50 ML SYRINGE IVP ONE (22:06)
[2020-08-21] MEDS ORDERED: INSULIN REGULAR, HUMAN 100 UNITS/ML ONE (22:07)
[2020-08-21] MEDS ORDERED: 0.9% SODIUM CHLORIDE 5 ML NEB SOLUTION NEB ONE (22:41)
[2020-08-21] MEDS ORDERED: SODIUM CHLORIDE 0.9% 1,000 ML IV ONE (22:45)
[2020-08-21] MEDS ORDERED: ALBUTEROL SULFATE 5 MG/ML 20 ML NEB SOLN [BULK] NEB ONE (22:45)
[2020-08-21] MEDS ORDERED: FUROSEMIDE 40 MG/4 ML VIAL IVP ONE (22:45)
[2020-08-21 23:05] LABS: ABG A-A DIFF O2 49.4 mmHg (10-20.0); ABG BASE EXCESS -8.2 mmol/L (-2.0-3.0); ABG CARBOXYHEMOGLOBIN 0.3 % (0.0-1.5); ABG HCO3 18.9 mmol/L (22.0-26.0); ABG METHEMOGLOBIN 0.2 % (0.0-1.5); ABG OXYGEN CONTENT 16.2 mL/dL (15.0-23.0); ABG OXYGEN SATURATION 98.1 % (95.0-98.0); ABG OXYHEMOGLOBIN 97.6 % (94.0-100.0); ABG PCO2 27 mmHg (35-45); ABG PH 7.404 (7.35-7.450); ABG TOTAL HEMOGLOBIN 11.7 G/dL (12.0-18.0); PO2, ARTERIAL BG 118.3 mmHg (75.0-83.0); SOURCE, BLOOD GAS ARTERIAL; TEMPERATURE, FAHRENHEIT, BG 98.6 FAHREN (96.0-98.6)
[2020-08-21 23:06] LABS: O2 DEVICE,BLOOD GAS CANNULA (ROOM AIR); SITE, BLOOD GAS LFT BRACHIAL
[2020-08-21 23:26] LABS: BASOPHILS % (AUTO) 0.2 % (0.0-2.0); EOSINOPHILS % (AUTO) 0.1 % (1.0-6.0); HEMATOCRIT 30.7 % (36-46); HEMOGLOBIN 10.2 g/dL (12.0-16.0); LYMPHOCYTES # (AUTO) 1.2 K/uL (1.0-4.8); LYMPHOCYTES % (AUTO) 11.1 % (22.0-44.0); MEAN CORPUSCULAR HEMOGLOBIN 30.2 pg (26.0-34.0); MEAN CORPUSCULAR HGB CONC 33.3 G/dL (31.0-37.0); MEAN CORPUSCULAR VOLUME 91 fL (80-100); MONOCYTES # (AUTO) 0.6 K/uL (0.1-1.0); MONOCYTES % (AUTO) 6.2 % (2.0-9.0); NEUTROPHILS # (AUTO) 8.6 K/uL (1.8-7.7); NEUTROPHILS % (AUTO) 82.4 % (40.0-70.0); PLATELET COUNT (AUTO) 458 K/uL (150-450); RED BLOOD CELL COUNT(AUTO) 3.38 MIL/uL (4.00-5.20); RED CELL DISTRIBUTION WIDTH 14.5 % (11.5-14.5)
[2020-08-21 23:46] LABS: INR 1.1 (0.9-1.1); PROTHROMBIN TIME 11.9 SEC (9.4-11.6)
[2020-08-21 23:53] LABS: MAGNESIUM 1.8 mg/dL (1.80-2.40)
[2020-08-22] VITALS (7 sets, daily range): BP systolic 100–128; BP diastolic 48–81
[2020-08-22 00:01] LABS: ALBUMIN 3.2 g/dL (3.4-5.0); BILIRUBIN,TOTAL 0.6 mg/dL (0.1-1.0); CREATININE 5.96 mg/dL (0.60-1.30); TOTAL PROTEIN, SERUM 9.3 g/dL (6.4-8.2)
[2020-08-22 00:13] LABS: PHOSPHORUS 9.6 mg/dL (2.5-4.9)
[2020-08-22 00:14] LABS: GLUCOSE,POINT OF CARE 376 MG/DL (70-110)
[2020-08-22 00:25] LABS: CALCIUM, TOTAL 12.6 mg/dL (8.8-10.5); POTASSIUM 7.4 mmol/L (3.5-5.1)
[2020-08-22] MEDS ORDERED: CALCIUM CHLORIDE 100 MG/ML 10 ML VIAL IVP ONE (00:30)
[2020-08-22] MEDS ORDERED: CALCIUM GLUCONATE 100 MG/ML 10 ML IVP ONE (00:30)
[2020-08-22] MEDS ORDERED: SODIUM CHLORIDE 0.9% 1,000 ML IV ONE ×4 (00:30→04:45)
[2020-08-22] MEDS ORDERED: INSULIN REGULAR, HUMAN 100 UNITS/ML IVP ONE ×2 (00:30→03:00)
[2020-08-22] MEDS ORDERED: SODIUM BICARBONATE 50 MEQ/50 ML VIAL IVP ONE (00:30)
[2020-08-22] MEDS ORDERED: SODIUM ZIRCONIUM CYCLOSILICATE 5 GM POWDER PACKET PO ONE (00:45)
[2020-08-22 00:49] LABS: APPEARANCE,URINE TURBID (CLEAR); BILIRUBIN,URINE NEGATIVE (NEGATIVE); GLUCOSE, URINE (UA) 100 mg/dL (NEGATIVE); KETONES,URINE NEGATIVE (NEGATIVE); LEUKOCYTE ESTERASE ,URINE LARGE (NEGATIVE); NITRATE,URINE NEGATIVE (NEGATIVE); OCCULT BLOOD,URINE LARGE (NEGATIVE); PROTEIN,URINE SEE CONFIRM (NEGATIVE); UROBILINOGEN,URINE 0.2 mg/dL (<=1.0)
[2020-08-22 01:23] LABS: SULFOSALICYLIC ACID,URINE 3+ (Negative)
[2020-08-22 01:24] LABS: BACTERIA,URINE Many /HPF (None Seen); SQUAMOUS EPITHELIAL CELL,UR Moderate /LPF (None Seen); WBC,URINE >100 /HPF (0-5)
[2020-08-22] MEDS ORDERED: NOREPINEPHRINE 4 MG/D5%-WATER 250 ML IV PRN (01:45)
[2020-08-22] MEDS ORDERED: VANCOMYCIN HCL 1 GM/D5% WATER 200 ML IV ONE (02:00)
[2020-08-22] MEDS: PIPERACILLIN SODIUM/TAZOBACTAM 2.25 GM in DEXTROSE 5%-WATER 50 ML IV SCH ×3 (02:06→18:45)
[2020-08-22 02:09] LABS: GLUCOSE,POINT OF CARE 270 MG/DL (70-110)
[2020-08-22] MEDS ORDERED: AZITHROMYCIN 500 MG TABLET PO ONE (02:15)
[2020-08-22 02:23] LABS: ANION GAP 18 mmol/L (8-16); CALCIUM, TOTAL 11.3 mg/dL (8.8-10.5); CARBON DIOXIDE 16 mmol/L (22-29); CHLORIDE 85 mmol/L (98-107); GLOMERULAR FILTR. RATE CALC 8 mL/min (>60); GLUCOSE,RANDOM 310 mg/dL (70-110)
[2020-08-22 02:26] LABS: SODIUM SERUM 119 mmol/L (136-145)
[2020-08-22 02:27] LABS: POTASSIUM 6.8 mmol/L (3.5-5.1); UREA NITROGEN, BLOOD 115 mg/dL (7-18)
[2020-08-22 02:38] LABS: LACTIC ACID 7.6 mmol/L (0.4-2.0)
[2020-08-22] MEDS ORDERED: ALBUTEROL SULFATE 5 MG/ML 20 ML NEB SOLN [BULK] NEB ONE (03:00)
[2020-08-22] MEDS ORDERED: INSULIN REGULAR, HUMAN 100 UNITS/ML SQ ONE (05:00)
[2020-08-22] MEDS ORDERED: ALBUTEROL SULFATE 2.5 MG/0.5 ML NEB SOLUTION NEB ONE (05:00)
[2020-08-22] MEDS ORDERED: DEXTROSE 50%-WATER 25 GM/50 ML SYRINGE IVP ONE (05:00)
[2020-08-22 05:28] LABS: GLUCOSE,POINT OF CARE 248 MG/DL (70-110)
[2020-08-22] MEDS ORDERED: VANCOMYCIN HCL 1 GM/D5% WATER 200 ML IV PRN ×2 (05:30→06:15)
[2020-08-22] MEDS: NOREPINEPHRINE 4 MG/D5%-WATER 250 ML IV PRN ×2 (05:53→19:16)
[2020-08-22] MEDS ORDERED: SODIUM CHLORIDE 0.45% 1,000 ML IV SCH (06:00)
[2020-08-22] MEDS ORDERED: DEXTROSE 50%-WATER 25 GM/50 ML SYRINGE IVP PRN (06:30)
[2020-08-22 06:32] LABS: CALCIUM, TOTAL 11.1 mg/dL (8.8-10.5); CREATININE 3.95 mg/dL (0.60-1.30)
[2020-08-22] MEDS ORDERED: SODIUM CHLORIDE 0.45% 1,000 ML IV ONE (07:00)
[2020-08-22 07:32] LABS: GLUCOSE,POINT OF CARE 219 MG/DL (70-110)
[2020-08-22 10:15] LABS: CALCIUM, TOTAL 10.8 mg/dL (8.8-10.5); CREATININE 3.25 mg/dL (0.60-1.30)
[2020-08-22] MEDS ORDERED: CASPOFUNGIN ACETATE 70 MG in SODIUM CHLORIDE 0.9% 250 ML IV ONE (11:45)
[2020-08-22 12:43] LABS: COVID AG,FIA SOURCE NASOPHARYNGEAL
[2020-08-22 13:17] LABS: GLUCOSE,POINT OF CARE 125 MG/DL (70-110)
[2020-08-22] MEDS ORDERED: SODIUM CHLORIDE 0.9% 500 ML IV ONE ×2 (15:30)
[2020-08-22] MEDS: MORPHINE SULFATE 2 MG/ML SYRINGE IVP PRN ×2 (18:45→23:32)
[2020-08-22] MEDS ORDERED: ZINC OXIDE 20% 30 GM OINTMENT TP ONE (18:45)
[2020-08-22 21:01] LABS: CALCIUM, TOTAL 10.6 mg/dL (8.8-10.5); CREATININE 2.22 mg/dL (0.60-1.30); POTASSIUM 4.7 mmol/L (3.5-5.1)
[2020-08-22 21:06] LABS: MAGNESIUM 1.1 mg/dL (1.80-2.40); PHOSPHORUS 4.2 mg/dL (2.5-4.9)
[2020-08-22] MEDS: SODIUM BICARBONATE 100 MEQ in SODIUM CHLORIDE 0.45% 1,000 ML IV SCH (21:07)
[2020-08-22 21:10] LABS: BASOPHILS % (AUTO) 0.5 % (0.0-2.0); EOSINOPHILS % (AUTO) 0.2 % (1.0-6.0); HEMATOCRIT 27.9 % (36-46); HEMOGLOBIN 9.2 g/dL (12.0-16.0); LYMPHOCYTES # (AUTO) 2.3 K/uL (1.0-4.8); LYMPHOCYTES % (AUTO) 19.7 % (22.0-44.0); MEAN CORPUSCULAR HEMOGLOBIN 29.7 pg (26.0-34.0); MEAN CORPUSCULAR VOLUME 90 fL (80-100); MONOCYTES # (AUTO) 1.1 K/uL (0.1-1.0); MONOCYTES % (AUTO) 9.5 % (2.0-9.0); NEUTROPHILS # (AUTO) 8.3 K/uL (1.8-7.7); NEUTROPHILS % (AUTO) 70.1 % (40.0-70.0); PLATELET COUNT (AUTO) 435 K/uL (150-450); RED BLOOD CELL COUNT(AUTO) 3.11 MIL/uL (4.00-5.20); RED CELL DISTRIBUTION WIDTH 14.2 % (11.5-14.5)
[2020-08-22] MEDS: INSULIN LISPRO 100 UNITS/ML SQ PRN (21:10)
[2020-08-22 21:12] LABS: CALCIUM, TOTAL 10.6 mg/dL (8.8-10.5); CREATININE 2.17 mg/dL (0.60-1.30); POTASSIUM 4.5 mmol/L (3.5-5.1)
[2020-08-22] MEDS: INSULIN GLARGINE,HUM.REC.ANLOG 100 UNITS/ML SQ SCH (21:12)
[2020-08-22 21:18] LABS: GLUCOSE,POINT OF CARE 160 MG/DL (70-110)
[2020-08-22 21:19] LABS: ALBUMIN 2.9 g/dL (3.4-5.0); BILIRUBIN,TOTAL 0.7 mg/dL (0.1-1.0); TOTAL PROTEIN, SERUM 8.1 g/dL (6.4-8.2)
[2020-08-22] MEDS ORDERED: MAGNESIUM SULFATE 4 GM/WATER 100 ML IV ONE (22:00)
[2020-08-23] VITALS (13 sets, daily range): BP systolic 115–141; BP diastolic 54–81
[2020-08-23] MEDS: PIPERACILLIN SODIUM/TAZOBACTAM 2.25 GM in DEXTROSE 5%-WATER 50 ML IV SCH ×3 (02:25→19:03)
[2020-08-23] MEDS: MORPHINE SULFATE 2 MG/ML SYRINGE IVP PRN ×3 (05:50→16:38)
[2020-08-23] MEDS: NOREPINEPHRINE 4 MG/D5%-WATER 250 ML IV PRN ×2 (06:41→16:39)
[2020-08-23] MEDS: SODIUM BICARBONATE 100 MEQ in SODIUM CHLORIDE 0.45% 1,000 ML IV SCH (07:02)
[2020-08-23] MEDS: INSULIN LISPRO 100 UNITS/ML SQ PRN (07:03)
[2020-08-23 07:09] LABS: GLUCOSE,POINT OF CARE 158 MG/DL (70-110)
[2020-08-23 07:56] LABS: BASOPHILS % (AUTO) 0.6 % (0.0-2.0); EOSINOPHILS % (AUTO) 0.5 % (1.0-6.0); HEMATOCRIT 28.4 % (36-46); HEMOGLOBIN 9.6 g/dL (12.0-16.0); LYMPHOCYTES # (AUTO) 2.5 K/uL (1.0-4.8); LYMPHOCYTES % (AUTO) 25.1 % (22.0-44.0); MEAN CORPUSCULAR HEMOGLOBIN 30.3 pg (26.0-34.0); MEAN CORPUSCULAR HGB CONC 33.9 G/dL (31.0-37.0); MEAN CORPUSCULAR VOLUME 89 fL (80-100); MONOCYTES % (AUTO) 10.1 % (2.0-9.0); NEUTROPHILS # (AUTO) 6.3 K/uL (1.8-7.7); NEUTROPHILS % (AUTO) 63.7 % (40.0-70.0); PLATELET COUNT (AUTO) 416 K/uL (150-450); RED BLOOD CELL COUNT(AUTO) 3.18 MIL/uL (4.00-5.20); RED CELL DISTRIBUTION WIDTH 14.2 % (11.5-14.5)
[2020-08-23 08:09] LABS: ALBUMIN 2.8 g/dL (3.4-5.0); BILIRUBIN,TOTAL 0.8 mg/dL (0.1-1.0); CALCIUM, TOTAL 10.4 mg/dL (8.8-10.5); CREATININE 1.38 mg/dL (0.60-1.30); MAGNESIUM 2.2 mg/dL (1.80-2.40); PHOSPHORUS 2.4 mg/dL (2.5-4.9); POTASSIUM 3.5 mmol/L (3.5-5.1); TOTAL PROTEIN, SERUM 8.1 g/dL (6.4-8.2)
[2020-08-23 09:56] LABS: GLUCOSE,POINT OF CARE 199 MG/DL (70-110)
[2020-08-23] MEDS: CASPOFUNGIN ACETATE 50 MG in SODIUM CHLORIDE 0.9% 250 ML IV SCH (12:22)
[2020-08-23] MEDS ORDERED: VANCOMYCIN HCL 750 MG in DEXTROSE 5%-WATER 250 ML IV ONE (14:00)
[2020-08-23 14:03] LABS: GLUCOSE,POINT OF CARE 154 MG/DL (70-110)
[2020-08-23] MEDS ORDERED: SODIUM CHLORIDE 0.45% 1,000 ML IV SCH (17:00)
[2020-08-23] MEDS ORDERED: SODIUM PHOS,M-BASIC-D-BASIC 20 MEQ in DEXTROSE 5%-WATER 100 ML IV ONE (17:00)
[2020-08-23 18:10] LABS: CALCIUM, TOTAL 10.3 mg/dL (8.8-10.5); CREATININE 1.16 mg/dL (0.60-1.30); POTASSIUM 3.7 mmol/L (3.5-5.1)
[2020-08-23] MEDS: ALBUMIN HUMAN 25%-25GM/100ML 100 ML IV SCH (19:04)
[2020-08-23] MEDS ORDERED: DEXTROSE 5%-0.45% SODIUM CHL 1,000 ML IV PRN (20:00)
[2020-08-23] MEDS ORDERED: NALOXONE HCL 0.4 MG/ML VIAL IVP PRN ×2 (20:00)
[2020-08-23] MEDS ORDERED: HYDROmorphone 2 MG/ML SYRINGE IVP ONE (20:00)
[2020-08-23] MEDS: INSULIN GLARGINE,HUM.REC.ANLOG 100 UNITS/ML SQ SCH (22:11)
[2020-08-23 22:21] LABS: GLUCOSE,POINT OF CARE 227 MG/DL (70-110)
[2020-08-24] VITALS (10 sets, daily range): BP systolic 83–153; BP diastolic 40–63
[2020-08-24] MEDS: ALBUMIN HUMAN 25%-25GM/100ML 100 ML IV SCH ×4 (00:04→19:21)
[2020-08-24] MEDS: PIPERACILLIN SODIUM/TAZOBACTAM 2.25 GM in DEXTROSE 5%-WATER 50 ML IV SCH ×5 (00:05→23:52)
[2020-08-24] MEDS: MORPHINE SULFATE 2 MG/ML SYRINGE IVP PRN ×4 (05:43→22:45)
[2020-08-24] MEDS: DEXTROSE 5%-0.2% SODIUM CHL 1,000 ML IV SCH ×2 (08:09→22:39)
[2020-08-24 08:37] LABS: BASOPHILS % (AUTO) 0.6 % (0.0-2.0); EOSINOPHILS % (AUTO) 0.4 % (1.0-6.0); HEMATOCRIT 23.4 % (36-46); LYMPHOCYTES # (AUTO) 1.4 K/uL (1.0-4.8); LYMPHOCYTES % (AUTO) 19.6 % (22.0-44.0); MEAN CORPUSCULAR HEMOGLOBIN 30.4 pg (26.0-34.0); MEAN CORPUSCULAR HGB CONC 34.2 G/dL (31.0-37.0); MEAN CORPUSCULAR VOLUME 89 fL (80-100); MONOCYTES # (AUTO) 0.6 K/uL (0.1-1.0); MONOCYTES % (AUTO) 8.7 % (2.0-9.0); NEUTROPHILS % (AUTO) 70.7 % (40.0-70.0); RED BLOOD CELL COUNT(AUTO) 2.63 MIL/uL (4.00-5.20); RED CELL DISTRIBUTION WIDTH 13.8 % (11.5-14.5)
[2020-08-24 08:40] LABS: PLATELET COUNT (AUTO) 370 K/uL (150-450)
[2020-08-24 09:02] LABS: ALBUMIN 3.9 g/dL (3.4-5.0); BILIRUBIN,TOTAL 1.1 mg/dL (0.1-1.0); C-REACTIVE PROTEIN QUANT 2.57 mg/dL (0.00-0.30); CALCIUM, TOTAL 9.9 mg/dL (8.8-10.5); CREATININE 1.01 mg/dL (0.60-1.30)
[2020-08-24 09:55] LABS: MAGNESIUM 1.2 mg/dL (1.80-2.40)
[2020-08-24 10:02] LABS: PHOSPHORUS 1.3 mg/dL (2.5-4.9)
[2020-08-24] MEDS ORDERED: SODIUM PHOS,M-BASIC-D-BASIC 30 MMOL in DEXTROSE 5%-WATER 250 ML IV ONE (10:45)
[2020-08-24] MEDS ORDERED: MAGNESIUM SULFATE 4 GM/WATER 100 ML IV ONE (10:45)
[2020-08-24] MEDS: POTASSIUM CHL 10 MEQ/WATER 50 ML IV SCH ×3 (10:53→19:21)
[2020-08-24] MEDS ORDERED: VANCOMYCIN HCL 750 MG in DEXTROSE 5%-WATER 250 ML IV ONE (11:00)
[2020-08-24 12:43] LABS: CALCIUM, TOTAL 9.7 mg/dL (8.8-10.5); CREATININE 1.19 mg/dL (0.60-1.30); POTASSIUM 3.4 mmol/L (3.5-5.1)
[2020-08-24 14:43] LABS: GLUCOSE,POINT OF CARE 259 MG/DL (70-110)
[2020-08-24] MEDS: CASPOFUNGIN ACETATE 50 MG in SODIUM CHLORIDE 0.9% 250 ML IV SCH (14:47)
[2020-08-24 18:06] LABS: GLUCOSE,POINT OF CARE 240 MG/DL (70-110)
[2020-08-24] MEDS ORDERED: SODIUM CHLORIDE 0.9% 1,000 ML ONE (19:41)
[2020-08-24] MEDS: INSULIN GLARGINE,HUM.REC.ANLOG 100 UNITS/ML SQ SCH (21:54)
[2020-08-24 22:34] LABS: GLUCOSE,POINT OF CARE 174 MG/DL (70-110)
[2020-08-25] VITALS (19 sets, daily range): BP systolic 91–116; BP diastolic 42–85
[2020-08-25] MEDS: ALBUMIN HUMAN 25%-25GM/100ML 100 ML IV SCH ×4 (00:58→18:08)
[2020-08-25 02:06] LABS: GLUCOSE,POINT OF CARE 175 MG/DL (70-110)
[2020-08-25] MEDS ORDERED: POTASSIUM CHLORIDE 10% 40 MEQ/30 ML LIQUID UDCUP PO ONE (03:00)
[2020-08-25] MEDS: PIPERACILLIN SODIUM/TAZOBACTAM 2.25 GM in DEXTROSE 5%-WATER 50 ML IV SCH ×2 (05:44→12:36)
[2020-08-25 06:59] LABS: GLUCOSE,POINT OF CARE 189 MG/DL (70-110)
[2020-08-25 07:06] LABS: BASOPHILS % (AUTO) 0.6 % (0.0-2.0); EOSINOPHILS % (AUTO) 1.7 % (1.0-6.0); HEMATOCRIT 21.9 % (36-46); HEMOGLOBIN 7.4 g/dL (12.0-16.0); LYMPHOCYTES # (AUTO) 1.7 K/uL (1.0-4.8); MEAN CORPUSCULAR HEMOGLOBIN 30.5 pg (26.0-34.0); MEAN CORPUSCULAR HGB CONC 33.8 G/dL (31.0-37.0); MEAN CORPUSCULAR VOLUME 90 fL (80-100); MONOCYTES # (AUTO) 0.7 K/uL (0.1-1.0); MONOCYTES % (AUTO) 10.9 % (2.0-9.0); NEUTROPHILS # (AUTO) 3.8 K/uL (1.8-7.7); NEUTROPHILS % (AUTO) 59.8 % (40.0-70.0); PLATELET COUNT (AUTO) 223 K/uL (150-450); RED BLOOD CELL COUNT(AUTO) 2.43 MIL/uL (4.00-5.20); RED CELL DISTRIBUTION WIDTH 13.9 % (11.5-14.5)
[2020-08-25] MEDS: INSULIN LISPRO 100 UNITS/ML SQ PRN ×3 (07:07→22:10)
[2020-08-25 07:22] LABS: ALBUMIN 4.3 g/dL (3.4-5.0); BILIRUBIN,TOTAL 1.1 mg/dL (0.1-1.0); CALCIUM, TOTAL 9.5 mg/dL (8.8-10.5); CREATININE 0.96 mg/dL (0.60-1.30); MAGNESIUM 2.1 mg/dL (1.80-2.40); POTASSIUM 3.4 mmol/L (3.5-5.1); TOTAL PROTEIN, SERUM 7.8 g/dL (6.4-8.2)
[2020-08-25] MEDS ORDERED: VANCOMYCIN HCL 750 MG in DEXTROSE 5%-WATER 250 ML IV SCH (08:00)
[2020-08-25] MEDS ORDERED: SODIUM PHOS,M-BASIC-D-BASIC 20 MMOL in DEXTROSE 5%-WATER 150 ML IV ONE (08:00)
[2020-08-25] MEDS: MORPHINE SULFATE 2 MG/ML SYRINGE IVP PRN ×3 (08:54→22:07)
[2020-08-25] MEDS ORDERED: DICLOFENAC SODIUM 1% 100 GM GEL [2GM] TP PRN (10:30)
[2020-08-25] MEDS: DEXTROSE 5%-0.2% SODIUM CHL 1,000 ML IV SCH (11:43)
[2020-08-25] MEDS: CASPOFUNGIN ACETATE 50 MG in SODIUM CHLORIDE 0.9% 250 ML IV SCH (12:37)
[2020-08-25] MEDS: CefoTEtan DISOD 1 GM/DEXTROSE 50 ML IV SCH (14:45)
[2020-08-25] MEDS: SODIUM CHLORIDE 1 GM TABLET PO SCH ×2 (17:40→21:38)
[2020-08-25] MEDS: INSULIN GLARGINE,HUM.REC.ANLOG 100 UNITS/ML SQ SCH (22:09)
[2020-08-26] VITALS (10 sets, daily range): BP systolic 77–113; BP diastolic 41–55
[2020-08-26] MEDS ORDERED: SODIUM CHLORIDE 0.9% 250 ML IV ONE ×2 (00:26→00:39)
[2020-08-26] MEDS: CefoTEtan DISOD 1 GM/DEXTROSE 50 ML IV SCH ×2 (00:46→15:50)
[2020-08-26] MEDS: ALBUMIN HUMAN 25%-25GM/100ML 100 ML IV SCH (01:39)
[2020-08-26] MEDS: MORPHINE SULFATE 2 MG/ML SYRINGE IVP PRN ×3 (05:41→17:13)
[2020-08-26] MEDS: INSULIN LISPRO 100 UNITS/ML SQ PRN ×4 (06:13→20:38)
[2020-08-26 06:53] LABS: BASOPHILS % (AUTO) 0.6 % (0.0-2.0); EOSINOPHILS % (AUTO) 1.6 % (1.0-6.0); HEMATOCRIT 21.5 % (36-46); HEMOGLOBIN 7.4 g/dL (12.0-16.0); LYMPHOCYTES # (AUTO) 2.1 K/uL (1.0-4.8); LYMPHOCYTES % (AUTO) 25.1 % (22.0-44.0); MEAN CORPUSCULAR HEMOGLOBIN 30.9 pg (26.0-34.0); MEAN CORPUSCULAR HGB CONC 34.3 G/dL (31.0-37.0); MEAN CORPUSCULAR VOLUME 90 fL (80-100); MONOCYTES # (AUTO) 0.9 K/uL (0.1-1.0); MONOCYTES % (AUTO) 10.8 % (2.0-9.0); NEUTROPHILS # (AUTO) 5.3 K/uL (1.8-7.7); NEUTROPHILS % (AUTO) 61.9 % (40.0-70.0); PLATELET COUNT (AUTO) 217 K/uL (150-450); RED BLOOD CELL COUNT(AUTO) 2.38 MIL/uL (4.00-5.20); RED CELL DISTRIBUTION WIDTH 13.9 % (11.5-14.5)
[2020-08-26 07:25] LABS: ALBUMIN 4.8 g/dL (3.4-5.0); BILIRUBIN,TOTAL 0.9 mg/dL (0.1-1.0); CALCIUM, TOTAL 10.3 mg/dL (8.8-10.5); CREATININE 1.24 mg/dL (0.60-1.30); TOTAL PROTEIN, SERUM 8.2 g/dL (6.4-8.2)
[2020-08-26] MEDS ORDERED: POTASSIUM PHOS,M-BASIC-D-BASIC 20 MEQ in DEXTROSE 5%-WATER 100 ML IV ONE (08:30)
[2020-08-26] MEDS: SODIUM CHLORIDE 1 GM TABLET PO SCH ×3 (08:58→20:37)
[2020-08-26] MEDS: POTASSIUM CHL 10 MEQ/WATER 50 ML IV SCH ×5 (10:40→15:49)
[2020-08-26] MEDS: OxyCODONE HCL/ACETAMINOPHEN 10-325 MG TABLET PO PRN (16:12)
[2020-08-26] MEDS: INSULIN GLARGINE,HUM.REC.ANLOG 100 UNITS/ML SQ SCH (20:38)
[2020-08-26] MEDS ORDERED: SODIUM CHLORIDE 0.9% 500 ML IV ONE (21:15)
[2020-08-26] MEDS: SODIUM CHLORIDE 0.9% 1,000 ML IV SCH (21:31)
[2020-08-27] VITALS (10 sets, daily range): BP systolic 73–111; BP diastolic 30–67
[2020-08-27 01:14] LABS: GLUCOMETER DEV NAME(LOC) 6N.1; GLUCOSE,POINT OF CARE 216 MG/DL (70-110)
[2020-08-27] MEDS: CefoTEtan DISOD 1 GM/DEXTROSE 50 ML IV SCH ×2 (01:28→13:14)
[2020-08-27] MEDS: MORPHINE SULFATE 2 MG/ML SYRINGE IVP PRN (05:02)
[2020-08-27] MEDS: INSULIN LISPRO 100 UNITS/ML SQ PRN ×4 (06:21→21:48)
[2020-08-27 08:25] LABS: ALBUMIN 4.2 g/dL (3.4-5.0); BILIRUBIN,TOTAL 0.7 mg/dL (0.1-1.0); CALCIUM, TOTAL 10.4 mg/dL (8.8-10.5); CREATININE 2.57 mg/dL (0.60-1.30); MAGNESIUM 1.6 mg/dL (1.80-2.40); PHOSPHORUS 3.4 mg/dL (2.5-4.9); POTASSIUM 4.4 mmol/L (3.5-5.1); TOTAL PROTEIN, SERUM 8.1 g/dL (6.4-8.2)
[2020-08-27] MEDS: SODIUM CHLORIDE 1 GM TABLET PO SCH ×3 (08:42→21:40)
[2020-08-27] MEDS: SODIUM CHLORIDE 0.9% 1,000 ML IV SCH (11:49)
[2020-08-27] MEDS ORDERED: MAGNESIUM SULFATE 2 GM/WATER 50 ML IV ONE (13:45)
[2020-08-27] MEDS ORDERED: SODIUM CHLORIDE 1 GM TABLET PO ONE (15:30)
[2020-08-27] MEDS: OxyCODONE HCL/ACETAMINOPHEN 10-325 MG TABLET PO PRN (16:02)
[2020-08-27 16:53] LABS: BASOPHILS % (AUTO) 0.5 % (0.0-2.0); HEMATOCRIT 25.2 % (36-46); HEMOGLOBIN 8.3 g/dL (12.0-16.0); LYMPHOCYTES # (AUTO) 2.4 K/uL (1.0-4.8); LYMPHOCYTES % (AUTO) 22.5 % (22.0-44.0); MEAN CORPUSCULAR HEMOGLOBIN 30.1 pg (26.0-34.0); MEAN CORPUSCULAR VOLUME 91 fL (80-100); PLATELET COUNT (AUTO) 257 K/uL (150-450); RED BLOOD CELL COUNT(AUTO) 2.76 MIL/uL (4.00-5.20); RED CELL DISTRIBUTION WIDTH 14.3 % (11.5-14.5)
[2020-08-27 17:16] LABS: CALCIUM, TOTAL 10.6 mg/dL (8.8-10.5); CREATININE 2.73 mg/dL (0.60-1.30); POTASSIUM 4.7 mmol/L (3.5-5.1)
[2020-08-27 17:21] LABS: ALBUMIN 4.1 g/dL (3.4-5.0); BILIRUBIN,TOTAL 0.7 mg/dL (0.1-1.0)
[2020-08-27 18:08] LABS: APPEARANCE,URINE CLOUDY (CLEAR); GLUCOSE, URINE (UA) NEGATIVE (NEGATIVE); KETONES,URINE TRACE mg/dL (NEGATIVE); LEUKOCYTE ESTERASE ,URINE MODERATE (NEGATIVE); NITRATE,URINE NEGATIVE (NEGATIVE); OCCULT BLOOD,URINE MODERATE (NEGATIVE); PH,URINE 6.5 (5.0-8.0); PROTEIN,URINE SEE CONFIRM (NEGATIVE); UROBILINOGEN,URINE 0.2 mg/dL (<=1.0)
[2020-08-27 18:09] LABS: CREATININE,URINE RANDOM 265.3 mg/dL (30.0-125.0); SODIUM,URINE RANDOM 19 mmol/l (20-110); UREA NITROGEN,URINE RANDOM 156 mg/dL (350-1000)
[2020-08-27 18:21] LABS: BILIRUBIN,URINE PRELIM. POSITIVE (NEGATIVE)
[2020-08-27 18:22] LABS: SULFOSALICYLIC ACID,URINE 4+ (Negative); WBC,URINE 51-100 /HPF (0-5)
[2020-08-27 18:23] LABS: BACTERIA,URINE Moderate /HPF (None Seen); RBC,URINE 0-2 /HPF (0-2); YEAST,URINE Few /HPF (None Seen)
[2020-08-27 18:24] LABS: COARSE GRANULAR CASTS,URINE 0-2 /LPF (None Seen); SQUAMOUS EPITHELIAL CELL,UR Moderate /LPF (None Seen)
[2020-08-27] MEDS: INSULIN GLARGINE,HUM.REC.ANLOG 100 UNITS/ML SQ SCH (21:48)
[2020-08-27] MEDS ORDERED: SODIUM CHLORIDE 0.9% 500 ML IV ONE (23:02)
[2020-08-28] VITALS (16 sets, daily range): BP systolic 85–142; BP diastolic 40–97
[2020-08-28] MEDS: CefoTEtan DISOD 1 GM/DEXTROSE 50 ML IV SCH ×2 (01:41→14:05)
[2020-08-28] MEDS ORDERED: SODIUM CHLORIDE 0.9% 500 ML IV ONE (02:11)
[2020-08-28] MEDS: INSULIN LISPRO 100 UNITS/ML SQ PRN ×2 (06:12→11:29)
[2020-08-28] MEDS: SODIUM CHLORIDE 1 GM TABLET PO SCH ×2 (08:02→16:26)
[2020-08-28] MEDS: SODIUM CHLORIDE 0.9% 1,000 ML IV SCH (08:02)
[2020-08-28 09:03] LABS: BASOPHILS % (AUTO) 0.6 % (0.0-2.0); EOSINOPHILS % (AUTO) 2.7 % (1.0-6.0); HEMATOCRIT 33.1 % (36-46); HEMOGLOBIN 11.2 g/dL (12.0-16.0); LYMPHOCYTES # (AUTO) 1.5 K/uL (1.0-4.8); LYMPHOCYTES % (AUTO) 15.6 % (22.0-44.0); MEAN CORPUSCULAR HEMOGLOBIN 30.6 pg (26.0-34.0); MEAN CORPUSCULAR HGB CONC 33.8 G/dL (31.0-37.0); MEAN CORPUSCULAR VOLUME 91 fL (80-100); MONOCYTES # (AUTO) 0.8 K/uL (0.1-1.0); MONOCYTES % (AUTO) 8.5 % (2.0-9.0); NEUTROPHILS # (AUTO) 6.8 K/uL (1.8-7.7); NEUTROPHILS % (AUTO) 72.6 % (40.0-70.0); PLATELET COUNT (AUTO) 232 K/uL (150-450); RED BLOOD CELL COUNT(AUTO) 3.65 MIL/uL (4.00-5.20); RED CELL DISTRIBUTION WIDTH 13.3 % (11.5-14.5)
[2020-08-28 09:43] LABS: ALBUMIN 3.9 g/dL (3.4-5.0); BILIRUBIN,TOTAL 1.3 mg/dL (0.1-1.0); C-REACTIVE PROTEIN QUANT 4.52 mg/dL (0.00-0.30); CALCIUM, TOTAL 11.2 mg/dL (8.8-10.5); CREATININE 2.34 mg/dL (0.60-1.30); MAGNESIUM 2.1 mg/dL (1.80-2.40); PHOSPHORUS 3.1 mg/dL (2.5-4.9); POTASSIUM 4.6 mmol/L (3.5-5.1); TOTAL PROTEIN, SERUM 8.4 g/dL (6.4-8.2)
[2020-08-28] MEDS: MORPHINE SULFATE 2 MG/ML SYRINGE IVP PRN (11:30)
[2020-08-28 15:54] LABS: COVID AG,FIA SOURCE NASOPHARYNGEAL
== END 2020-08-28 16:25 | DRG 871 ==
LOC: EMS 21:27 → AHU 08-22 12:49 → 5S 08-25 17:00 → 6N 08-26 19:15 → 5S 08-27 00:24
PROVIDERS: ADMIT Internal Medicine; ATTEND Internal Medicine
PROC: 05HN33Z Insertion of Infusion Device into Left Internal Jugular Vein, Percutaneous Approach (ICD-10-PCS; 2020-08-22)
PROC: B544ZZA Ultrasonography of Left Jugular Veins, Guidance (ICD-10-PCS; 2020-08-22)
PROC: 30233N1 Transfusion of Nonautologous Red Blood Cells into Peripheral Vein, Percutaneous Approach (ICD-10-PCS; principal; 2020-08-28)
DX: A41.9 Sepsis, unspecified organism (principal); R65.21 Severe sepsis with septic shock; E43 Unspecified severe protein-calorie malnutrition; N17.0 Acute kidney failure with tubular necrosis; E87.1 Hypo-osmolality and hyponatremia; E87.2 Acidosis; K63.2 Fistula of intestine; N39.0 Urinary tract infection, site not specified; E87.5 Hyperkalemia; E78.5 Hyperlipidemia, unspecified; I25.10 Atherosclerotic heart disease of native coronary artery without angina pectoris; L89.159 Pressure ulcer of sacral region, unspecified stage; Z68.23 Body mass index [BMI] 23.0-23.9, adult; D64.9 Anemia, unspecified; E78.00 Pure hypercholesterolemia, unspecified; F03.90 Unspecified dementia, unspecified severity, without behavioral disturbance, psychotic disturbance, mood disturbance, and anxiety; M54.2 Cervicalgia; M54.5 Low back pain; Z95.810 Presence of automatic (implantable) cardiac defibrillator; I10 Essential (primary) hypertension; Z87.442 Personal history of urinary calculi; Z90.49 Acquired absence of other specified parts of digestive tract; I49.8 Other specified cardiac arrhythmias; E87.6 Hypokalemia; E83.42 Hypomagnesemia; B96.20 Unspecified Escherichia coli [E. coli] as the cause of diseases classified elsewhere; Z20.822 Contact with and (suspected) exposure to COVID-19
CPT/HCPCS: 36600; 74176; 82570; 82805; 83605; 83735; 83970; 84100; 84132; 84134; 84145; 84300; 84540; 86140; 86850; 86900; 86901; 86921; 87040; 87086; 87426; 93005; 94640; 99291; 99292; G0378; J0461; J0610; J0637; J1170; J1265; J1815; J1940; J2270; J2543; J3370; J3475; J3480; J3490; J7030; J7040; J7050; J7060; P9016; P9046; 36415-L1; 36415-TC; 71045-TC; J7611; X7700